=== PATIENT | female | born 1945 | race Caucasian/White ===

== ENCOUNTER 2020-01-01 11:30 | Emergency (ER) | payer MEDICARE, OTHER, SELFPAY ==
--- NOTE | 2020-01-01 11:34 | ED.GENADULT ---
HPI - General Adult General Chief complaint: Dental/Oral Stated complaint: broken tooth Time Seen by Provider: 01/01/20 11:48 Source: patient Mode of arrival: ambulatory Limitations: no limitations History of Present Illness HPI narrative: 74-year-old female patient presents to the [facility] with complaints of dental pain. Patient states that this morning her tooth on the right upper oral cavity broke off. Patient states that she feels like it is falling out. Patient states that she called her dental exchange and they instructed her to go the ER. Patient states that she did not want to sit in the ER all day today. Patient states she is starting to get a little bit of pain but denies taking anything for pain at this time. Patient wanting and requesting an emergency dentist office that is open on Friday. Related Data Home Medications Medication Instructions Recorded Confirmed alendronate 70 mg tablet 70 mg PO WEEKLY 09/30/19 coenzyme Q10 100 mg capsule 200 mg PO DAILY cap 09/30/19 simvastatin 20 mg tablet 20 mg PO QPM tablet 09/30/19 Allergies Allergy/AdvReac Type Severity Reaction Status Date / Time No Known Allergies Allergy Unverified 10/22/18 06:31 Review of Systems Review of Systems: Narrative: CONSTITUTIONAL: Denies fever, chills, or sweats. EYES: Denies visual changes, redness, or discharge. ENT: Denies rhinorrhea, congestion, sore throat, or otalgia. Positive broken tooth to right upper oral cavity CARDIOVASCULAR: Denies chest pain, palpitations, or edema. RESPIRATORY: Denies cough or dyspnea. GASTROINTESTINAL: Denies abdominal pain, nausea, vomiting, or diarrhea. GENITOURINARY: Denies dysuria or hematuria. SKIN: Denies rash or itching. MUSCULOSKELETAL: Denies back pain, joint pain, or myalgia. NEUROLOGIC: Denies headache, numbness, or weakness. PSYCHIATRIC: Denies anxiety or depression. [facility] Past Medical History Medical History Dyslipidemia Dysphonia Elevated lipids Essential (primary) hypertension Hx of echocardiogram negative stress echo 2002 Hypertension Osteoarthritis Osteopenia Family History Family History Sibling Diabetes mellitus Family history of hearing loss Mother Family history of hearing loss Social History Social History Smoking status: Never smoker Second hand tobacco smoke exposure: No Alcohol intake: current Substance use: never Substance use type: does not use Comments At the time of my signature I agree with nursing past medical history, surgical, social, and family history. There is no relevant family history pertinent to the presenting complaint. Exam Narrative: Exam Narrative: GENERAL: Well-appearing, well-nourished, and in no acute distress. HEAD: Normocephalic, atraumatic. EYES: PERRLA and EOMI. ENT: Nares clear, no rhinorrhea or epistaxis. Mucous membranes moist. Right upper bicuspid does appear to be broken at this time. There is slight erythema noted to the gum but no swelling noted. It is tender to the touch. NECK: Supple. No lymphadenopathy CHEST: Clear to auscultation. No respiratory distress. HEART: Regular rate and rhythm. No murmur heard. Normal peripheral pulses. ABDOMEN: Soft, nontender, nondistended, normal active bowel sounds. EXTREMITIES: Normal range of motion. No edema. SKIN: Warm, dry, no rash. NEURO: No focal deficits. Alert and oriented x3. Course Vital Signs Vital signs: Vital Signs Temperature 36.9 C 01/01/20 11:37 Pulse Rate 91 01/01/20 11:37 Respiratory Rate 16 01/01/20 11:37 Blood Pressure 143/105 H 01/01/20 11:37 Pulse Oximetry 99 01/01/20 11:37 Temperature 36.9 C 01/01/20 11:37 Pulse Rate 91 01/01/20 11:37 Respiratory Rate 16 01/01/20 11:37 Blood Pressure 143/105 H 01/01/20 11:37 Pulse Oximetry 99 01/01/20 11
[2020-01-01 11:37] VITALS: BP 143/105; PULSE 91; RESP 16; TEMP 36.9; O2SAT 99
== END 2020-01-01 12:01 | disposition home or self-care (01) ==
PROVIDERS: Emergency Provider Nurse Practitioner Family; PCP Family Medicine
DX: K03.81 Cracked tooth (principal); E78.5 Hyperlipidemia, unspecified; I10 Essential (primary) hypertension
CPT/HCPCS: 99213; G0463

== ENCOUNTER 2020-08-15 13:59 | Emergency (ER) | payer MEDICARE, OTHER, SELFPAY ==
[2020-08-15 14:03] VITALS: BP 188/94; PULSE 88; RESP 16; TEMP 36.8; O2SAT 100
--- NOTE | 2020-08-15 14:11 | ED.UPPEXIN ---
HPI - Extremity Injury (Upper) General Chief Complaint: Wound/Laceration Stated Complaint: INJURED FINGER Source: patient and RN notes reviewed History of Present Illness HPI narrative: The patient, previously mostly healthy with immunizations not UTD, presents with wound check of a skin avulsion. Patient states prior to arrival she sustained an avulsion/puncture to her left index finger at the nail insertion after a piece of glass broke. She would like TDap, the wound checked, as there is scant bleeding and small superficial avulsed tissue. No foreign body/glass sensation, decreased ROM, weakness; symptoms are minimal, better with pressure elevation Related Data Home Medications Medication Instructions Recorded Confirmed coenzyme Q10 100 mg capsule 200 mg PO DAILY cap 09/30/19 08/08/20 ascorbic acid 1,000 ea PO 08/08/20 08/08/20 zo-dxwloxxbjvcb-hwoexoeb powder effervescent pack calcium carb-vit S5-syljdghxr-jhip 1 tablet PO DAILY 08/08/20 08/08/20 333 mg-200 unit-133 mg-5 mg tablet glucosamine 750 tv-hlqrjsdilye-sda 1 tablet PO BID 08/08/20 08/08/20 no1 644 mg-C 30 mg-nicole 1 mg tablet latanoprost 0.005 % eye drops, 1 drp OPHTHALMIC (EYE) QPM 08/08/20 08/08/20 emulsion alendronate mg PO 08/15/20 losartan-hydrochlorothiazide tablet 08/15/20 simvastatin mg 08/15/20 Allergies Allergy/AdvReac Type Severity Reaction Status Date / Time No Known Allergies Allergy Verified 08/15/20 14:11 Review of Systems Review of Systems: Narrative: General/Constitutional: No weight loss,fever Eyes: N0: Redness,discharge Ears/Nose/Throat: No: Epistaxis,ear discharge Respiratory: Denies: Hemoptysis Gastrointestinal: No Vomiting, Bleeding-rectal Skin: No Lumps, eruption Neurologic: No Focal Weakness,Sz Hematologic: Denies: Petechiae/Purpura Psychiatric: No: Suicida ideationl All Other Systems: Reviewed and Negative [facility] Past Medical History Medical History (Updated 08/19/20 @ 17:29 by Fermin Mosqueda MD) Dyslipidemia Dysphonia Essential (primary) hypertension Hx of echocardiogram negative stress echo 2001 Hypertension Osteoarthritis Osteopenia Surgical History Surgical History (Updated 08/08/20 @ 12:05 by Magdalena Ansari MD) History of hip replacement (~2018) right - 07/2018 left 04/2018 Family History Family History Sibling Diabetes mellitus Family history of hearing loss Mother Family history of hearing loss Social History Social History Smoking status: Never smoker Second hand tobacco smoke exposure: No Alcohol intake: current Substance use: never Substance use type: does not use Comments At time of signature, agree with nursing past medical, surgical, social and family history. There is no relevant family history pertinent to the presenting complaint Exam Narrative: Exam Narrative: General Appearance: Well appearing, Conjunctiva nl Ears: External ear normal, Auditory canal normal Nose: Normal nose, Nares clear Mouth/Throat: Normal appearing, Normal lips Supple, Respiratory: Airway patent, No respiratory distress Skin: Warm, Dry; small 3 to 5 mm puncture/avulsion of the L. index cuticle Neurological: A&O x3, Normal affect Course Vital Signs Vital signs: Vital Signs Temperature 98.3 F 08/15/20 14:03 Pulse Rate 88 08/15/20 14:03 Respiratory Rate 16 08/15/20 14:03 Blood Pressure 188/94 H 08/15/20 14:03 Pulse Oximetry 100 08/15/20 14:03 Temperature 98.3 F 08/15/20 14:03 Pulse Rate 88 08/15/20 14:03 Respiratory Rate 16 08/15/20 14:03 Blood Pressure 188/94 H 08/15/20 14:03 Pulse Oximetry 100 08/15/20 14:03 Discharge Plan Discharge Clinical Impression: Encounter for post-traumatic wound check, Hx of avulsion Patient Disposition: Home, Self-Care Condition: Stable Instructions: Skin Avulsion (ED) Pre
[2020-08-15] MEDS: TETANUS,DIPHTHERIA,AC PERTUSSIS ADULT (0.5 ML) BOOSTRIX IM (14:23)
== END 2020-08-15 14:45 | disposition home or self-care (01) ==
PROVIDERS: Emergency Provider Emergency Medicine; PCP Family Medicine
DX: S61.201A Unspecified open wound of left index finger without damage to nail, initial encounter (principal); W25.XXXA Contact with sharp glass, initial encounter; Z23 Encounter for immunization; E78.5 Hyperlipidemia, unspecified; I10 Essential (primary) hypertension; M19.90 Unspecified osteoarthritis, unspecified site; M85.80 Other specified disorders of bone density and structure, unspecified site; Z96.643 Presence of artificial hip joint, bilateral
CPT/HCPCS: 90471; 90715; 99212; G0463

== ENCOUNTER 2021-04-11 12:56 | Outpatient (CLI) | payer MEDICARE, OTHER, SELFPAY ==
--- NOTE | ~2021-04-11 | MM_ITS ---
EXAMINATION: MM screening [facility] BI w stephanie HISTORY: Screening mammogram TECHNIQUE: Craniocaudal and mediolateral oblique 3-D tomosynthesis images were obtained and synthetic 2-D images were generated. CAD analysis was submitted and interpreted. COMPARISON: 04/14/2019, 05/07/2016, 02/24/2015 BREAST PARENCHYMAL COMPOSITION: There are scattered areas of fibroglandular density. FINDINGS: There is no evidence of suspicious mass, calcification, or architectural distortion to sugg est malignancy in either breast. There has been no suspicious interval change. IMPRESSION: 1. No mammographic evidence of malignancy. 2. Recommend routine screening mammography in one year. BI-RADS Category 1: Negative Reviewed, dictated and finalized at location A.
== END 2021-04-11 12:57 | disposition home or self-care (01) ==
LOC: ANHIMG 13:00
PROVIDERS: PCP Family Medicine; Visit Provider Family Medicine
DX: Z12.31 Encounter for screening mammogram for malignant neoplasm of breast (principal)
CPT/HCPCS: 77063; 77067

== ENCOUNTER 2021-09-06 04:27 | Emergency (ER) | payer MEDICARE, OTHER, SELFPAY ==
--- NOTE | ~2021-09-06 | XR_ITS ---
EXAMINATION: XR chest 1V portable DATE: 09/06/2021 05:14 INDICATION: Dizziness and vomiting. TECHNIQUE: A single frontal view of the chest was obtained. COMPARISON: Chest 2 views 10/22/2018 FINDINGS: Calcified pulmonary nodules and calcified hilar and mediastinal lymph nodes are consistent with old granulomatous disease. No pleural effusion or pneumothorax. The heart size is normal. IMPRESSION: 1. No acute cardiopulmonary disease. Reviewed, dictated and finalized at location A. [employer]
--- NOTE | ~2021-09-06 | CT_ITS ---
EXAMINATION: CT brain wo con DATE: 09/06/2021 05:21 INDICATION: Vertigo. TECHNIQUE: Computed tomography (CT) of the head was performed without intravenous contrast. The mA wa s adjusted according to patient size. Iterative reconstruction technique was employed. The dose-lengt h product was 605.33 mGy-cm. COMPARISON: None FINDINGS: There is no intracranial hemorrhage, acute infarction, or abnormal intracranial mass lesion . The ventricles are normal in size. There is mucosal thickening in the paranasal sinuses. The mastoi d air cells are normal. IMPRESSION: 1. Normal brain. Reviewed, dictated and finalized at location A. D TECHNICAL ASSISTANT IMPRESSION: 1. Normal brain.
--- NOTE | 2021-09-06 04:34 | ECG_ITS ---
Measurements Intervals [place] Rate: 80 P: 42 IA: 168 QRS: 3 QRSD: 90 T: 32 QT: 415 QTc: 480 Interpretive Statements SINUS RHYTHM POSSIBLE LEFT ATRIAL ENLARGEMENT LOW QRS VOLTAGE IN PRECORDIAL LEADS CANNOT RULE OUT SEPTAL INFARCT, AGE INDETERMINATE ABNORMAL ECG Electronically Signed On 09-06-2021 5:55:23 DYNAMOMETER TUNER by Geoff Pena D.O.
[2021-09-06 04:40] VITALS: BP 206/90; PULSE 77; RESP 18; TEMP 36.9; O2SAT 99
[2021-09-06 05:05] LABS: Basophils Percent Auto 0.2 % (0.2-1.2); Eosinophils Absolute Auto 0.1 K/mm3 (0-0.3); Eosinophils Percent Auto 1.2 % (0-4.4); Hematocrit 39.5 % (37.0-47.0); Hemoglobin 13.8 g/dL (12.0-15.0); Immature Granulocyte Absolute 0.02 K/mm3 (0.00-0.031); Immature Granulocyte Percent A 0.4 % (0-0.5); Lymphocytes Absolute Auto 1.56 K/mm3 (0.9-3.2); Lymphocytes Percent Auto 31.6 % (18.3-44.2); Mean Corpuscular HGB Conc 34.9 g/dl (32-36); Mean Corpuscular Hemoglobin 32.5 pg (26-34); Mean Corpuscular Volume 93.2 fl (80-100); Mean Platelet Volume 9.7 fl (7.4-10.4); Monocytes Absolute Auto 0.5 K/mm3 (0.1-0.6); Monocytes Percent Auto 9.5 % (2.6-8.5); Neutrophils Absolute Auto 2.8 K/mm3 (1.3-6.7); Neutrophils Percent Auto 57.1 % (45.5-73.1); Platelet Count Result 184 k/mm3 (150-375); Red Blood Count 4.24 M/mm3 (4.2-5.4); Red Cell Distribution Width 12.2 % (11.5-14.5); White Blood Count 4.9 K/mm3 (4.5-10.0)
[2021-09-06 05:22] LABS: Anion Gap 7 mmol/L (8-16); Blood Urea Nitrogen 19 mg/dL (7-17); Calcium 8.8 mg/dL (8.4-10.2); Carbon Dioxide 26 mmol/L (22-30); Chloride 107 mmol/L (98-107); Estimated CRCL calculation 47 ml/min; Estimated Glomerular Filt Rate > 60; Glucose 136 mg/dL (65-110); Potassium 3.2 mmol/L (3.4-5.0); Sodium 140 mmol/L (137-145)
--- NOTE | 2021-09-06 05:22 | ED.GENADULT ---
HPI - General Adult General Chief complaint: Dizziness Stated complaint: dizziness, N/V Time Seen by Provider: 09/06/21 04:41 History of Present Illness HPI narrative: Patient 75-year-old female presents the emergency department with chief complaint of dizziness patient reports this evening she started having a lightheaded feeling and feeling a rotational symptom. Patient states that she has had nausea without vomiting and reports that she needs to have a bowel movement now. Patient denies blood in her stool denies abdominal pain denies chest pain denies shortness of breath. Patient reports that when she was walking she felt as though she was a little unsteady whenever she was walked. Related Data Home Medications Medication Instructions Recorded Confirmed coenzyme Q10 100 mg capsule 200 mg PO DAILY cap 09/30/19 08/20/21 ascorbic acid 1,000 ea PO 08/08/20 08/20/21 al-ktqyrpztewcn-nokcghxf powder effervescent pack calcium carb-vit K1-ldxxfilzu-btsc 1 tablet PO DAILY 08/08/20 08/20/21 333 mg-200 unit-133 mg-5 mg tablet latanoprost 0.005 % eye drops, 1 drp OPHTHALMIC (EYE) QPM 08/08/20 08/20/21 emulsion glucosamine 750 qc-otndnpwtlhd-sxz 1 tablet PO DAILY tablet 08/20/21 08/20/21 no1 644 mg-C 30 mg-nicole 1 mg tablet Allergies Allergy/AdvReac Type Severity Reaction Status Date / Time No Known Allergies Allergy Verified 08/20/21 10:35 Review of Systems Review of Systems: A 10 system review of systems was completed on the patient and is negative except for what is stated in the HPI. Nursing and ancillary documentation was reviewed. [facility] Past Medical History Medical History Dyslipidemia Dysphonia Essential (primary) hypertension Hx of echocardiogram negative stress echo 2001 Osteoarthritis Osteopenia Surgical History Surgical History History of ear, nose, and throat (ENT) surgery 1980s - on vocal cords for dysphonia History of hip replacement (~2017) right - 07/2018 left 04/2018 Family History Family History Sibling Diabetes mellitus Family history of hearing loss Mother Family history of hearing loss Social History Social History Smoking status: Never smoker Second hand tobacco smoke exposure: No Alcohol intake: current Substance use: never Substance use type: does not use Gender identity (if verbalized by the patient): Female Sexual Orientation (if Verbalized by the Patient): Straight or Heterosexual Exam Narrative: GENERAL: Well-appearing, well-nourished, and in no acute distress. HEAD: Normocephalic, atraumatic. EYES: PERRLA and EOMI. ENT: Nares clear, no rhinorrhea or epistaxis. Mucous membranes moist. NECK: Supple. CHEST: Clear to auscultation. No respiratory distress. HEART: Regular rate and rhythm. No murmur heard. Normal peripheral pulses. ABDOMEN: Soft, nontender, nondistended, normal active bowel sounds. EXTREMITIES: Normal range of motion. No edema. SKIN: Warm, dry, no rash. NEURO: No focal deficits. Alert and oriented x3. PSYCH: Normal mood and affect. Course Vital Signs Vital signs: Vital Signs Temperature 36.9 C 09/06/21 04:40 Pulse Rate 77 09/06/21 04:40 Respiratory Rate 18 09/06/21 04:40 Blood Pressure 206/90 H 09/06/21 04:40 Pulse Oximetry 99 09/06/21 04:40 Temperature 36.9 C 09/06/21 04:40 Pulse Rate 79 09/06/21 06:06 Respiratory Rate 14 09/06/21 06:06 Blood Pressure 164/69 H 09/06/21 06:06 Pulse Oximetry 99 09/06/21 06:06 Medical Decision Making Vital Signs Vital Signs: Vital Signs Temperature 36.9 C 09/06/21 04:40 Pulse Rate 77 09/06/21 04:40 Respiratory Rate 18 09/06/21 04:40 Blood Pressure 206/90 H 09/06/21 04:40 Pulse Oximetry
[2021-09-06] MEDS: SODIUM CHLORIDE 0.9% IV 1,000 ML 999 ML IV CONT (05:23)
[2021-09-06] MEDS: METOCLOPRAMIDE HCL INJ 10 MG/2 ML VIAL IV PUSH (05:24)
[2021-09-06 05:50] LABS: Lactic Acid Reflex 1.8 mmol/L (0.7-2.1)
[2021-09-06 05:52] LABS: Alanine Aminotransferase 20 U/L (4-35); Albumin Level 4.3 g/dL (3.5-5.1); Alkaline Phosphatase 82 U/L (38-126); Aspartate Amino Transferase 29 U/L (14-36); Bilirubin,Total 0.3 mg/dL (0.2-1.3); Magnesium 1.9 mg/dL (1.6-2.3)
[2021-09-06 06:03] LABS: Troponin I < 0.012 ng/mL (0.000-0.034)
[2021-09-06] MEDS: POTASSIUM CHLORIDE 20 MEQ PACKET (FOR LIQUID) 40 MEQ PO (06:04)
[2021-09-06] MEDS: MECLIZINE HCL 25 MG TABLET PO (06:04)
[2021-09-06 06:06] VITALS: BP 164/69; PULSE 79; RESP 14; O2SAT 99
[2021-09-06 06:14] LABS: INR 0.9; Partial Thromboplastin Time 22.9 SECONDS (22.3-36.8); Prothrombin Time 11.6 Seconds (11.1-14.7)
[2021-09-06 06:42] LABS: Add Urine Microscopic? YES; Appearance Urine Cloudy (Clear); Bilirubin Urine Negative (Negative); Color Urine Yellow (Yellow); Glucose Urine UA Negative (Negative); Ketones Urine Negative (Negative); Leukocyte Esterase Ur 3+ LEU/UL (Negative); Nitrate Urine Negative (Negative); Protein Urine 1+ mg/dL (Negative); Specific Grav Ur 1.015 (1.001-1.035); Squamous Epithelial Cell Urine Moderate /hpf (Few); Urobilinogen Urine Negative mg/dL (<2.0); WBC Urine 31-50 /hpf
[2021-09-06 06:46] VITALS: BP 159/65; PULSE 78; RESP 16; O2SAT 100
[2021-09-06 06:58] LABS: Blood Urine Negative (Negative)
== END 2021-09-06 06:50 | disposition home or self-care (01) ==
PROVIDERS: Emergency Provider Emergency Medicine; PCP Family Medicine
DX: H81.10 Benign paroxysmal vertigo, unspecified ear (principal); R11.2 Nausea with vomiting, unspecified; E78.5 Hyperlipidemia, unspecified; I10 Essential (primary) hypertension; Z79.899 Other long term (current) drug therapy
CPT/HCPCS: 36415; 70450; 71045; 80048; 80076; 81001; 83605; 83735; 84484; 85025; 85610; 85730; 87086; 93005; 96361; 96374; 99284; A9270; J2765; J7030

== ENCOUNTER 2022-06-21 12:38 | Outpatient (CLI) | payer MEDICARE, OTHER, SELFPAY ==
--- NOTE | ~2022-06-21 | MM_ITS ---
EXAMINATION: MM screening [facility] BI w stephanie HISTORY: Screening TECHNIQUE: Craniocaudal and mediolateral oblique 3-D tomosynthesis images were obtained and synthetic 2-D images were generated. CAD analysis was submitted and interpreted. COMPARISON: Comparison to multiple prior studies sequentially, with oldest reviewed study dated 10/2014. BREAST PARENCHYMAL COMPOSITION: Breast composed of scattered areas of fibroglandular density FINDINGS: There is no evidence of suspicious mass, calcification, or architectural distortion to sugg est malignancy in either breast. There has been no suspicious interval change. IMPRESSION: 1. No mammographic evidence of malignancy. 2. Recommend routine screening mammography in one year. BI-RADS Category 1: Negative Reviewed, dictated and finalized at location A.
== END 2022-06-21 12:39 | disposition home or self-care (01) ==
PROVIDERS: PCP Family Medicine; Visit Provider Nurse Practitioner
DX: Z12.31 Encounter for screening mammogram for malignant neoplasm of breast (principal)
CPT/HCPCS: 77063; 77067

== ENCOUNTER → 2022-07-26 16:36 | Outpatient (CLI) | payer MEDICARE, OTHER, SELFPAY ==
--- NOTE | ~2022-07-26 | XR_ITS ---
EXAMINATION: XR lumbar spine 2-3V DATE: 07/26/2022 16:56 INDICATION: Low back pain. Bilateral leg pain. TECHNIQUE: 3 views of lumbar spine were obtained. COMPARISON: Lumbar spine radiographs 02/07/2014 FINDINGS: There is 8 degrees levocurvature of lumbar spine. There is 3 mm anterolisthesis of L4 on L5 . Vertebral body heights are normal. There is mildly decreased disc height at L3-L4 and L4-L5. There are endplate osteophytes at most levels. There is multilevel facet joint osteoarthritis, severe in lo wer lumbar spine. There are bilateral hip arthroplasties. IMPRESSION: 1. Mild lumbar spondylosis. Reviewed, dictated and finalized at location A. IMPRESSION: 1. Mild lumbar spondylosis.
--- NOTE | ~2022-07-26 | XR_ITS ---
EXAMINATION: XR sacrum coccyx min 2V DATE: 07/26/2022 16:56 INDICATION: Low back pain, unspecified. TECHNIQUE: 3 views of the sacrum and coccyx were obtained. COMPARISON: None. FINDINGS: There is 3 mm anterolisthesis of L4 on L5. There is mild lumbar spondylosis. No fracture. T here is mild osteoarthritis of the sacroiliac joints. There are bilateral total hip arthroplasties. IMPRESSION: 1. Mild osteoarthritis of the sacroiliac joints. 2. Mild lumbar spondylosis. Reviewed, dictated and finalized at location A.
== END ==
PROVIDERS: PCP Nurse Practitioner Family; Visit Provider Nurse Practitioner Family
DX: M79.604 Pain in right leg (principal); M79.605 Pain in left leg; M47.896 Other spondylosis, lumbar region; M53.3 Sacrococcygeal disorders, not elsewhere classified
CPT/HCPCS: 72100; 72220

== ENCOUNTER 2022-08-19 11:00 | Emergency (ER) | payer MEDICARE, OTHER, SELFPAY ==
[2022-08-19 11:09] VITALS: BP 154/68; PULSE 80; RESP 16; TEMP 37; O2SAT 99
[2022-08-19 12:07] LABS: Basophils Percent Auto 0.4 % (0.2-1.2); Eosinophils Absolute Auto 0.1 K/mm3 (0-0.3); Eosinophils Percent Auto 1.5 % (0-4.4); Hematocrit 40.5 % (37.0-47.0); Immature Granulocyte Absolute 0.01 K/mm3 (0.00-0.031); Immature Granulocyte Percent A 0.2 % (0-0.5); Lymphocytes Absolute Auto 1.73 K/mm3 (0.9-3.2); Lymphocytes Percent Auto 37.4 % (18.3-44.2); Mean Corpuscular HGB Conc 34.6 g/dl (32-36); Mean Corpuscular Hemoglobin 33.3 pg (26-34); Mean Corpuscular Volume 96.2 fl (80-100); Mean Platelet Volume 9.7 fl (7.4-10.4); Monocytes Absolute Auto 0.4 K/mm3 (0.1-0.6); Monocytes Percent Auto 8.4 % (2.6-8.5); Neutrophils Absolute Auto 2.4 K/mm3 (1.3-6.7); Neutrophils Percent Auto 52.1 % (45.5-73.1); Platelet Count Result 222 k/mm3 (150-375); Red Blood Count 4.21 M/mm3 (4.2-5.4); Red Cell Distribution Width 12.4 % (11.5-14.5); White Blood Count 4.6 K/mm3 (4.5-10.0)
[2022-08-19 12:21] LABS: Alanine Aminotransferase 20 U/L (6-35); Albumin Level 4.2 g/dL (3.5-5.1); Alkaline Phosphatase 75 U/L (38-126); Anion Gap 10 mmol/L (8-16); Aspartate Amino Transferase 29 U/L (14-36); Bilirubin,Total 0.4 mg/dL (0.2-1.3); Blood Urea Nitrogen 18 mg/dL (7-17); Calcium 8.7 mg/dL (8.4-10.2); Carbon Dioxide 26 mmol/L (22-30); Chloride 105 mmol/L (98-107); Estimated CRCL calculation 47 ml/min; Estimated Glomerular Filt Rate > 60; Glucose 100 mg/dL (65-110); Lipase 141 U/L (23-300); Potassium 3.5 mmol/L (3.4-5.0); Sodium 141 mmol/L (137-145)
--- NOTE | 2022-08-19 19:54 | ED.GENADULT ---
HPI - General Adult General Chief complaint: Abdominal Pain Stated complaint: constipation Time Seen by Provider: 08/19/22 11:13 History of Present Illness HPI narrative: 76-year-old female presenting with constipation for the last 2 days, she has had issues with constipation in the past for all her life, her last colonoscopy was 8 years ago and was normal at the time. Per daughter at bedside, she had similar issues 2 weeks ago and when she was very constipated she overall was feeling unwell and weak and she feels somewhat similar today. No abdominal pain, nausea or vomiting, though she does have hemorrhoids that bother her. Related Data Home Medications Medication Instructions Recorded Confirmed coenzyme Q10 100 mg capsule (Co 200 mg PO DAILY 09/30/19 07/26/22 Q-10) ascorbic acid 1,000 ea PO 08/08/20 07/26/22 qf-ucuqatdyrbzx-wskpbbfh powder effervescent pack (Emergen-C) calcium carb-vit H0-asnxxcqma-ucwf 1 tablet PO DAILY 08/08/20 07/26/22 333 mg-200 unit-133 mg-5 mg tablet glucosamine 750 jc-wvksbevjmdk-tor 1 tablet PO DAILY 08/20/21 07/26/22 no1 644 mg-C 30 mg-nicole 1 mg tablet (Osteo Bi-Flex Triple Strength) Allergies Allergy/AdvReac Type Severity Reaction Status Date / Time No Known Allergies Allergy Verified 08/19/22 11:12 Review of Systems Review of Systems: CONST: Fatigue HEENT: No sore throat C/V: No chest pain RESP: No cough GI: has a patient without abdominal pain : No dysuria. M/S: Chronic back pain SKIN: No rash. NEURO: [No headache or focal numbness or weakness] PSYCH: [No depression] [facility] Past Medical History Medical History Dyslipidemia Dysphonia Essential (primary) hypertension Hx of echocardiogram negative stress echo 2001 Osteoarthritis Osteopenia Surgical History Surgical History History of ear, nose, and throat (ENT) surgery - on vocal cords for dysphonia History of hip replacement (~2017) right - 07/2018 left 04/2018 Family History Family History Sibling Diabetes mellitus Family history of hearing loss Mother Family history of hearing loss Social History Social History Smoking status: Never smoker Second hand tobacco smoke exposure: No Alcohol intake: current Substance use: never Substance use type: does not use Gender identity (if verbalized by the patient): Female Sexual Orientation (if Verbalized by the Patient): Straight or Heterosexual Exam Narrative: EXAMINATION OF ORGAN SYSTEMS/BODY AREAS: Constitutional: Vital signs per nursing GENERAL:[No acute distress, non-toxic appearing.] HEAD: Normal with no signs of head trauma. EYES: EOMI, conjunctiva normal ENT: Hearing grossly intact LUNGS: Nonlabored breathing. HEART: [Regular rate and rhythm] ABD: [Soft], [nontender to palpation], no distention EXT: Normal range of motion SKIN: [No rashes or lesions.] NEURO: [Alert and oriented x 3. No gross focal sensory or strength deficits.] PSYCH: Normal affect Course Vital Signs Vital signs: Vital Signs Temperature 98.6 F 08/19/22 11:09 Pulse Rate 80 08/19/22 11:09 Respiratory Rate 16 08/19/22 11:09 Blood Pressure 154/68 H 08/19/22 11:09 Pulse Oximetry 99 08/19/22 11:09 Temperature 98.6 F 08/19/22 11:09 Pulse Rate 80 08/19/22 11:09 Respiratory Rate 16 08/19/22 11:09 Blood Pressure 154/68 H 08/19/22 11:09 Pulse Oximetry 99 08/19/22 11:09 Medical Decision Making MDM Narrative Medical decision making narrative: This 76-year-old female patient presents with constipation of 2 days, without any abdominal pain, nausea or vomiting. Vitals stable here, on exam has soft, nontender abdomen. I have low concern for any emergent diagnosis such as SBO or bowel ischemia without any tend
== END 2022-08-19 13:00 | disposition home or self-care (01) ==
LOC: ANHED 12:01
PROVIDERS: Emergency Provider Emergency Medicine; PCP Nurse Practitioner Family
DX: K59.00 Constipation, unspecified (principal); K64.9 Unspecified hemorrhoids; E78.5 Hyperlipidemia, unspecified; I10 Essential (primary) hypertension; M19.90 Unspecified osteoarthritis, unspecified site; M85.80 Other specified disorders of bone density and structure, unspecified site; Z96.643 Presence of artificial hip joint, bilateral
CPT/HCPCS: 36415; 80053; 83690; 85025; 99284

== ENCOUNTER 2022-10-04 01:29 | Emergency (ER) | payer MEDICARE, OTHER, SELFPAY ==
[2022-10-04] VITALS (9 sets, daily range): BP systolic 160–189; BP diastolic 70–86; PULSE 75–93; RESP 12–21; TEMP 36.9; O2SAT 99–100
--- NOTE | 2022-10-04 01:30 | ECG_ITS ---
Measurements Intervals [place] Rate: 78 P: 39 [place]: 162 QRS: -5 QRSD: 82 T: 36 QT: 385 QTc: 440 Interpretive Statements SINUS RHYTHM POSSIBLE LEFT ATRIAL ENLARGEMENT [-0.1mV P WAVE IN V1/V2] LOW QRS VOLTAGE IN PRECORDIAL LEADS [QRS DEFLECTION < 1.0 mV IN CHEST LEADS] POSSIBLE ANTERIOR MYOCARDIAL INFARCTION , OLD COMPARED TO ECG 09/06/2021 04:39:08 NO SIGNIFICANT CHANGES Electronically Signed On 10-04-2022 7:47:33 SETTER UP by Axel Rudd M.D.
--- NOTE | 2022-10-04 02:31 | ED.GENADULT ---
HPI - General Adult General Chief complaint: Unspecified Stated complaint: hypertension Time Seen by Provider: 10/04/22 01:59 History of Present Illness HPI narrative: This is a 76-year-old female presenting ED with chief complaint of hypertension. Patient says she woke up at 2:00 a.m.. She decided to check her blood pressure is elevated at 170s/100s. the patient then became anxious about her blood pressure and checked it again and continued to rise. She then came to emergency department for evaluation. The patient is not complaining of chest pain, difficulty breathing, headache, neurologic deficits. She feels well overall though she is anxious about her health. Related Data Home Medications Medication Instructions Recorded Confirmed coenzyme Q10 100 mg capsule (Co 200 mg PO DAILY 09/30/19 08/26/22 Q-10) ascorbic acid 1,000 ea PO 08/08/20 08/26/22 fs-cxxgswkfbetf-wglmxsjv powder effervescent pack (Emergen-C) calcium carb-vit F2-ccbfdesvs-cato 1 tablet PO DAILY 08/08/20 08/26/22 333 mg-200 unit-133 mg-5 mg tablet glucosamine 750 ys-cfpuqgvtamm-gqo 1 tablet PO DAILY 08/20/21 08/26/22 no1 644 mg-C 30 mg-nicole 1 mg tablet (Osteo Bi-Flex Triple Strength) acetaminophen 325 mg tablet 325 mg PO Q6H PRN 08/26/22 08/26/22 (Tylenol) naproxen sodium 220 mg tablet 220 mg PO BID PRN 08/26/22 08/26/22 (Aleve) Allergies Allergy/AdvReac Type Severity Reaction Status Date / Time No Known Allergies Allergy Verified 08/26/22 08:55 Review of Systems Review of Systems: CONSTITUTIONAL: Denies night sweats. EYES: No eye pain ENT: Denies rhinorrhea CARDIOVASCULAR: Denies palpitations RESPIRATORY: Denies hemoptysis GASTROINTESTINAL: Denies hematemesis GENITOURINARY: Denies hematuria. SKIN: Denies rash MUSCULOSKELETAL: Denies myalgia. NEUROLOGIC: Denies weakness. PSYCHIATRIC: Denies delusions PMFSH Past Medical History Medical History Dyslipidemia Dysphonia Essential (primary) hypertension Hx of echocardiogram negative stress echo 2002 Osteoarthritis Osteopenia Surgical History Surgical History History of ear, nose, and throat (ENT) surgery 1980s - on vocal cords for dysphonia History of hip replacement (~2017) right - 07/2018 left 04/2018 Family History Family History Sibling Diabetes mellitus Family history of hearing loss Mother Family history of hearing loss Social History Social History Smoking status: Never smoker Second hand tobacco smoke exposure: No Alcohol intake: never Substance use: never Substance use type: does not use Lack of Transportation: No Lack of Food: Never True Current Housing: I Have Housing Concerned About Future Housing: No Difficulty Paying Gas/Electric Bills: No Difficulty Paying for Meds: No Currently Unemployed: No Education: High School Diploma/GED Additional living arrangements comments: Pts 08/25/21 Gender identity (if verbalized by the patient): Female Sexual Orientation (if Verbalized by the Patient): Straight or Heterosexual Agree to blood products: Yes Exam Narrative: APPEARANCE: No apparent distress. Head: atraumatic. EYES: EOMI, NOSE: Atraumatic NECK: Trachea midline RESPIRATORY: No increased rate of breathing Clear to auscultation bilaterally CARDIOVASCULAR: RRR, no peripheral edema ABDOMINAL: Non-distended MUSCULOSKELETAl: No obvious deformities NEURO: Alert. Cranial nerves 2-12 grossly intact. Sensation light touch, motor function cerebellar function intact for 4 extremities. Gait exam was normal. SKIN:: Warm, dry. Normal color PSYCHIATRIC: anxious Course Vital Signs Vital signs: Vital Signs Temperature 98.5 F 10/04/22 01:30 Pulse Rate 87 1
== END 2022-10-04 03:08 | disposition home or self-care (01) ==
PROVIDERS: Emergency Provider Emergency Medicine; PCP Nurse Practitioner Family
DX: I10 Essential (primary) hypertension (principal); F41.9 Anxiety disorder, unspecified; E78.5 Hyperlipidemia, unspecified; M19.90 Unspecified osteoarthritis, unspecified site; M85.80 Other specified disorders of bone density and structure, unspecified site; Z96.643 Presence of artificial hip joint, bilateral
CPT/HCPCS: 93005; 99283

== ENCOUNTER 2022-11-19 00:15 | Day surgery (SDC) | payer MEDICARE, OTHER, SELFPAY ==
[2022-10-18 11:19] VITALS: BMI 25.7
--- NOTE | 2022-11-19 06:59 | WPDANESEPPF ---
Anes - Initial Pre Proc Eval Procedure: Operation Date: 11/19/22 08:30 Proposed Procedures p Colonoscopy - Víctor Garcia MD Date/Time: 11/19/22 06:59 Surgeon: Víctor Garcia MD Pre Op Diagnosis: positive cologuard Patient Data Age: 77 Gender: F Height: 1.59 m Weight: 65 kg Allergies Allergy/AdvReac Type Severity Reaction Status Date / Time No Known Allergies Allergy Verified 11/19/22 07:29 Home Medications Medication Instructions Recorded Confirmed Type coenzyme Q10 100 mg capsule (Co 200 mg PO DAILY 09/30/19 11/19/22 History Q-10) ascorbic acid 1,000 1 ea PO DAILY 08/08/20 11/19/22 History oq-jjfeypuyoyjl-urpksizj powder effervescent pack (Emergen-C) calcium carb-vit H4-ruuprgnwq-lkig 1 tablet PO DAILY 08/08/20 11/19/22 History 333 mg-200 unit-133 mg-5 mg tablet glucosamine 750 lb-ehmxfygmyng-mwf 1 tablet PO DAILY 08/20/21 11/19/22 History no1 644 mg-C 30 mg-nicole 1 mg tablet (Osteo Bi-Flex Triple Strength) hydrocortisone 2.5 % topical cream 1 applic RECTAL DAILY PRN 08/19/22 11/19/22 Rx with perineal applicator hemorrhoids #30 grams (Anusol-HC) acetaminophen 325 mg tablet 325 mg PO Q6H PRN Pain 08/26/22 11/19/22 History (Tylenol) sodium,potassium,mag sulfates 17.5 See Rx Instructions PO .COMPLEX 09/27/22 11/19/22 Rx gram-3.13 gram-1.6 gram oral soln #354 mL (Suprep Bowel Prep Kit) losartan 100 1 tablet PO DAILY #90 tabs 10/09/22 11/19/22 Rx mg-hydrochlorothiazide 12.5 mg tablet Cbd Cream 1 applic DAILY PRN Pain 10/18/22 11/19/22 History cholecalciferol (vitamin D3) 50 50 mcg PO DAILY 10/18/22 11/19/22 History mcg (2,000 unit) capsule (Vitamin D3) lactobacillus combination no.8 3 1 cell PO DAILY 10/18/22 11/19/22 History billion cell capsule polyethylene glycol 3350 17 17 g PO DAILY PRN Constipation 10/18/22 11/19/22 History gram/dose oral powder (Miralax) simvastatin 20 mg tablet 20 mg PO QHS #90 tabs 11/18/22 11/19/22 Rx Patient hx anesthesia problems: none Family hx anesthesia problems: none Results Review: All pre-operative results and documents have been reviewed as part of the pre-operative evaluation. [facility] Past Medical History Medical History (Updated 11/19/22 @ 07:00 by Marin Bhakta DO) Chronic low back pain Dyslipidemia Dysphonia Essential (primary) hypertension Glaucoma Hx of echocardiogram negative stress echo 2001 Osteoarthritis Osteopenia Paralysis of left vocal cord Surgical History Surgical History History of ear, nose, and throat (ENT) surgery - on vocal cords for dysphonia History of hip replacement (~2017) right - 07/2018 left 04/2018 Family History Family History Sibling Diabetes mellitus Family history of hearing loss Mother Family history of hearing loss Social History Social History Smoking status: Never smoker Second hand tobacco smoke exposure: No Alcohol intake: never Substance use: never Substance use type: does not use Lack of Transportation: No Lack of Food: Never True Current Housing: I Have Housing Concerned About Future Housing: No Difficulty Paying Gas/Electric Bills: No Difficulty Paying for Meds: No Currently Unemployed: No Education: High School Diploma/GED Living arrangements: with family Additional living arrangements comments: Pts 08/25/21 Occupation/Education: retired Gender identity (if verbalized by the patient): Female Sexual Orientation (if Verbalized by the Patient): Straight or Heterosexual Agree to blood products: Yes Anes - Eval Final PreProcedure Day of Procedure 11/19/22 06:59 Patient weight: overweight Heart: regular rate and rhythm Lungs: clear to auscultation Airway: Mallampati scale class I
[2022-11-19 07:32] VITALS: BP 155/75; PULSE 85; RESP 16; TEMP 36.7; O2SAT 100
[2022-11-19] MEDS: LACTATED RINGERS 1,000 ML 150 ML IV CONT (07:43)
--- NOTE | 2022-11-19 08:01 | PM.HPGS ---
History of Present Illness History of Present Illness Consent: Risks, benefits, and alternatives have been discussed and questions answered. Patient agrees to proceed with procedure. Chief complaint: positive cologuard Narrative: Desire Montilla is a 77 year old female Presents for screening colonoscopy. Patient's current weight appetite and bowel movements are normal. Patient denies abdominal pain. She has had no bleeding. Recent stool Cologuard test was found to be positive . Patient presents today for screening exam. Review of Systems Review of Systems: Review of systems noncontributory. [facility] Past Medical History Medical History (Updated 11/19/22 @ 07:00 by Marin Bhakta, DO) Chronic low back pain Dyslipidemia Dysphonia Essential (primary) hypertension Glaucoma Hx of echocardiogram negative stress echo 2001 Osteoarthritis Osteopenia Paralysis of left vocal cord Surgical History Surgical History History of ear, nose, and throat (ENT) surgery 1980s - on vocal cords for dysphonia History of hip replacement (~2017) right - 07/2018 left 04/2018 Family History Family History Sibling Diabetes mellitus Family history of hearing loss Mother Family history of hearing loss Social History Social History Smoking status: Never smoker Second hand tobacco smoke exposure: No Alcohol intake: never Substance use: never Substance use type: does not use Lack of Transportation: No Lack of Food: Never True Current Housing: I Have Housing Concerned About Future Housing: No Difficulty Paying Gas/Electric Bills: No Difficulty Paying for Meds: No Currently Unemployed: No Education: High School Diploma/GED Living arrangements: with family Additional living arrangements comments: Pts 08/25/21 Occupation/Education: retired Gender identity (if verbalized by the patient): Female Sexual Orientation (if Verbalized by the Patient): Straight or Heterosexual Agree to blood products: Yes Meds Home Medications and Allergies Home Medications Medication Instructions Recorded Confirmed Type coenzyme Q10 100 mg capsule (Co 200 mg PO DAILY 09/30/19 11/19/22 History Q-10) ascorbic acid 1,000 1 ea PO DAILY 08/08/20 11/19/22 History ht-yzqmvuihdmlr-ifzczswa powder effervescent pack (Emergen-C) calcium carb-vit S6-ksfmbkobx-xfqd 1 tablet PO DAILY 08/08/20 11/19/22 History 333 mg-200 unit-133 mg-5 mg tablet glucosamine 750 kg-rkmzkcmjpfj-lnu 1 tablet PO DAILY 08/20/21 11/19/22 History no1 644 mg-C 30 mg-nicole 1 mg tablet (Osteo Bi-Flex Triple Strength) hydrocortisone 2.5 % topical cream 1 applic RECTAL DAILY PRN 08/19/22 11/19/22 Rx with perineal applicator hemorrhoids #30 grams (Anusol-HC) acetaminophen 325 mg tablet 325 mg PO Q6H PRN Pain 08/26/22 11/19/22 History (Tylenol) sodium,potassium,mag sulfates 17.5 See Rx Instructions PO .COMPLEX 09/27/22 11/19/22 Rx gram-3.13 gram-1.6 gram oral soln #354 mL (Suprep Bowel Prep Kit) losartan 100 1 tablet PO DAILY #90 tabs 10/09/22 11/19/22 Rx mg-hydrochlorothiazide 12.5 mg tablet Cbd Cream 1 applic DAILY PRN Pain 10/18/22 11/19/22 History cholecalciferol (vitamin D3) 50 50 mcg PO DAILY 10/18/22 11/19/22 History mcg (2,000 unit) capsule (Vitamin D3) lactobacillus combination no.8 3 1 cell PO DAILY 10/18/22 11/19/22 History billion cell capsule polyethylene glycol 3350 17 17 g PO DAILY PRN Constipation 10/18/22 11/19/22 History gram/dose oral powder (Miralax) simvastatin 20 mg tablet 20 mg PO QHS #90 tabs 11/18/22 11/19/22 Rx Allergies Allergy/AdvReac Type Severity Reaction Status Date / Time No Known Allergies Allergy Verified 11/19/22 07:29 Vital Signs Vital Signs - 24
[2022-11-19 09:05] VITALS: BP 87/49; PULSE 81; RESP 16; O2SAT 98
[2022-11-19 09:15] VITALS: BP 132/70; PULSE 76; RESP 16; O2SAT 100
[2022-11-19 09:25] VITALS: BP 132/70; PULSE 76; RESP 16; O2SAT 100
== END 2022-11-19 09:44 | disposition home or self-care (01) ==
PROVIDERS: PCP Family Medicine; Visit Provider Internal Medicine Gastroenterology
PROC: 0DJD8ZZ Inspection of Lower Intestinal Tract, Via Natural or Artificial Opening Endoscopic (ICD-10-PCS; CPT 45378; principal; 2022-11-19 08:30)
DX: Z12.11 Encounter for screening for malignant neoplasm of colon (principal); R19.5 Other fecal abnormalities; K64.8 Other hemorrhoids; I10 Essential (primary) hypertension; E78.5 Hyperlipidemia, unspecified; H40.9 Unspecified glaucoma
CPT/HCPCS: G0121; J2704; J7120

== ENCOUNTER 2022-12-11 12:30 | Outpatient (RCR) | payer MEDICARE, OTHER, SELFPAY ==
--- NOTE | 2022-09-17 17:31 | PTOPEVAL1 ---
Assessment and note entered by Carolyne Monte, PT Evaluation Information Assessment Status Evaluation Diagnosis pain in low back, bilat LEs, sacroiliatis Onset 05/2022 Subjective Information Reports pain came on slowly. Difficulty with first getting up in the morning reports LLE numbness, is seeing a chiropractic once a week. Pt reports also receives lidocaine shots weekly at that office Reported Pain Level Pain Score 0/10 at rest and up to 8/10 with activity Assessment PT Clinical Summary Pt reports back pain and burning at times in pelvic floor. She notes her back pain and burning tend to coincide, with aggravating factors including standing and walking. Notes pain subsides often with sitting. Pt demo's severely reduced strength in the transverse abdominal muscles, glute med and max bilaterally. She also demo's abnormal pelvic position with inominate upslip and possible leg length discrepancy. Pain in pelvic floor appears to be muscle spasm related likely as a compensatory measure to weak lumbopelvic stabilizer musculature. Thus patient will benefit from physical therapy to address alignment, strength, and stability to reduce pain and improve functional activity level. Plan of Care Interventions Electrical Stimulation,Hot Pack/Cold Pack,Manual Therapy,Neuro Re-education,Therapeutic Activities, Therapeutic Exercise,Self-Care/Home Management PT Services Indicated Yes Treatment Frequency and 1-2x weekly x 4 weeks Duration These treatments will address the objective and functional deficits as defined above. The patient will be advanced safely and appropriately in order for the patient to progress towards his/her prior level of function. Additional exercises will be introduced and as well as a comprehensive home exercise program upon discharge, if needed, ?to ensure carryover of functional gains achieved in the clinic. This treatment plan has been reviewed and agreement upon by the patient.
--- NOTE | 2022-10-22 14:26 | PTOPPROG ---
Assessment and note entered by Maria De Jesus Haque DPT Evaluation Information Assessment Status Progress Diagnosis pain in low back, bilat LEs, sacroiliatis Onset 05/2022 Subjective Information Pt reports her pain is most significant in her pelvis, feels a burning. Unsure cause, will last about 5 minutes and position changes would help somewhat. Numbness in her L hip (also has previous bilateral ANDRE's). Feels tingling in her back as well. Highest pain 8/10 and lowest 1/10. Pain started in May 2022 and has worsened over time. Insidious onset. Urinates 10-15 times a day, 1-2 times at night. Can hold urine 20-30 minutes. Denies pain with urination. BM daily, not painful currently. Last pelvic exam reports discomfort, but not her typical pain. Denies history of painful intercourse, tampon use, etc. Assessment PT Clinical Summary The patient is presenting to skilled therapy with LBP and significant pelvic pain. Lumbar extension reproduces her pelvic pain and she presents with tenderness to bilateral PSIS and sacrum. She will benefit from further therapy to address these impairments and reduce her pain and dysfunction. She may also benefit from more specific pelvic floor assessments if her pain remains unchanged. Plan of Care Interventions Electrical Stimulation,Gait Training,Hot Pack/Cold Pack,Manual Therapy,Neuro Re-education,Patient/ Caregiver Education,Therapeutic Activities, Therapeutic Exercise,Self-Care/Home Management PT Services Indicated Yes Treatment Frequency and 1-2 times a week for 4 weeks Duration These treatments will address the objective and functional deficits as defined above. The patient will be advanced safely and appropriately in order for the patient to progress towards his/her prior level of function. Additional exercises will be introduced and as well as a comprehensive home exercise program upon discharge, if needed, ?to ensure carryover of functional gains achieved in the clinic. This treatment plan has been reviewed and agreement upon by the patient.
--- NOTE | 2022-11-27 14:56 | PTOPPROG ---
Assessment and note entered by Maria De Jesus Haque DPT Evaluation Information Assessment Status Progress Diagnosis pain in low back, bilat LEs, sacroiliatis Onset 05/2022 Subjective Information Highest pain in the last week 02/03. Pt reports she has been feeling better with therapy. Pain is not as intense or as often anymore. Notices pain with prolonged positions like standing or sitting for an hour. Noticed it just recently while sitting to work on her taxes Assessment PT Clinical Summary The patient has made good progress in therapy and reports a decrease in her pain intensity and frequency. She demonstrates no tenderness to palpation this visit or pain with repeated lumbar movements. She continues to have some pain with prolonged positioning like while sitting to work on her taxes. Due to her progress but continued pain, plan to continue therapy to further decrease pain and dysfunction. Plan of Care Interventions Hot Pack/Cold Pack,Manual Therapy,Neuro Re- education,Patient/Caregiver Education,Therapeutic Activities,Therapeutic Exercise,Self-Care/Home Management PT Services Indicated Yes Treatment Frequency and 1 time a week for 4 weeks Duration These treatments will address the objective and functional deficits as defined above. The patient will be advanced safely and appropriately in order for the patient to progress towards his/her prior level of function. Additional exercises will be introduced and as well as a comprehensive home exercise program upon discharge, if needed, ?to ensure carryover of functional gains achieved in the clinic. This treatment plan has been reviewed and agreement upon by the patient.
--- NOTE | 2022-12-16 10:10 | PCPTNOTE ---
This treatment is being continued on visit number [id number]. Please see documentation on both accounts to view progress. Completed interventions, outcomes, and problems have been marked as Inactive to facilitate the copying of the Care plan routine for recurring accounts.
== END 2022-12-12 13:31 | disposition home or self-care (01) ==
LOC: ANHGOSHPT 12:30
PROVIDERS: PCP Nurse Practitioner Family; Visit Provider Family Medicine
DX: M54.50 Low back pain, unspecified (principal); M79.604 Pain in right leg; M79.605 Pain in left leg; M47.816 Spondylosis without myelopathy or radiculopathy, lumbar region; M46.1 Sacroiliitis, not elsewhere classified
CPT/HCPCS: 97110; 97112; 97140; 97162

== ENCOUNTER 2022-12-25 11:00 | Outpatient (RCR) | payer MEDICARE, OTHER, SELFPAY ==
--- NOTE | 2022-12-16 10:11 | PCPTNOTE ---
The treatment documented on this account is a continuation of the treatment documented on visit number [id number]. Please see documentation on both accounts to view progress. The Plan of Care has been transitioned and updated within the new V#. I have addressed and agree with the discipline specific Problems, Interventions, and Goals for the current certification period. Completed interventions, outcomes, and problems have been marked as Inactive to facilitate the copying of the Care plan routine for recurring accounts.
--- NOTE | 2022-12-25 11:30 | PTOPDC ---
Assessment and note entered by Maria De Jesus Haque DPHarper Evaluation Information Assessment Status Discharge Subjective Information Pt reports she is feeling good currently but had a flare up of pain over the weekend. Unsure what caused it. Did not do anything out of the ordinary other than moving her washer a little after it had gotten out of place. Highest pain 4/10 and lowest 0/10. Feels therapy has continued to help, less difficulty walking her dog, was able to sit and play cards recently without much issue. Pain is also not as often. Reported Pain Level Pain Score 0: Self Report Assessment PT Clinical Summary The patient has continued to make good progress in therapy and reports no functional limitations at this time. She continues to report her pain is occurring less often. Due to her progress, plan to discharge at this time. She has been educated to continue her HEP and to follow up with MD and/or PT as needed. Plan of Care PT Services Indicated No
== END 2022-12-25 13:39 | disposition home or self-care (01) ==
LOC: ANHGOSHPT 11:00
PROVIDERS: PCP Family Medicine; Visit Provider Family Medicine
DX: M54.50 Low back pain, unspecified (principal); M79.604 Pain in right leg; M79.605 Pain in left leg; M47.816 Spondylosis without myelopathy or radiculopathy, lumbar region; M46.1 Sacroiliitis, not elsewhere classified
CPT/HCPCS: 97110; 97112

== ENCOUNTER 2023-02-14 07:56 | Outpatient (CLI) | payer MEDICARE, OTHER, SELFPAY ==
--- NOTE | ~2023-02-14 | DEXA_ITS ---
Bone Density Report Name: DEJUAN TAYLOR Age: 77 Sex: Female Ethnicity: White Date of : 1945 Indication: postmenopausal; screening for osteoporosis; height loss; Referring Provider: CLARK ZULUAGA Study: Bone densitometry was performed. Exam Date: February 14, 2023 Accession number: [id number] Bone Density: Region BMD T-score Z-score Classification AP Spine(L1-L4) 1.124 0.7 3.2 Normal World Health Organization criteria for BMD impression classify patients as: Normal (T-score at or above -1.0), Osteopenia (T-score between -1.0 and -2.5), or Osteoporosis (T-score at or below -2.5). Clinical Information Provided by Patient: Has used the following medications: Vitamin D, Calcium Patient maximum height was 64 Drinks caffeinated beverages Onset of menses at age 11 Number of children 2 Impression: The patient has normal bone mass. Discussion: LOW RISK OF FRACTURE; BONE DENSITY IS WELL ABOVE THE MINIMUM DESIRABLE LEVEL AND ABOVE AVERAGE FOR AGE AND SEX AT ALL SKELETAL SITES TESTED. This person's bone density is above expected limits for age and sex. This is rarely clinically significant, but should be pursued if there are significant musculoskeletal complaints. The patient should follow a healthful lifestyle (good nutrition with adequate calcium and vitamin D, and appropriate weight-bearing exercise). Follow-Up: Consider repeating this study in 5 years or sooner if there is some new clinical indication. Reported by: [facility] on 02/14/2023 8:14:00 AM. Reviewed, dictated and finalized at location Gisell TAO
== END 2023-02-14 07:57 | disposition home or self-care (01) ==
PROVIDERS: PCP Family Medicine; Visit Provider Family Medicine
DX: Z78.0 Asymptomatic menopausal state (principal)
CPT/HCPCS: 77080

== ENCOUNTER 2023-03-11 08:59 | Outpatient (CLI) | payer MEDICARE, OTHER, SELFPAY ==
[2023-03-11 19:10] LABS: Alanine Aminotransferase 19 U/L (6-35); Alkaline Phosphatase 68 U/L (38-126); Anion Gap 5 mmol/L (8-16); Aspartate Amino Transferase 37 U/L (14-36); Bilirubin,Total 0.6 mg/dL (0.2-1.3); Blood Urea Nitrogen 18 mg/dL (7-17); Carbon Dioxide 31 mmol/L (22-30); Chloride 103 mmol/L (98-107); Estimated Glomerular Filt Rate > 60; Glucose 88 mg/dL (65-110); Potassium 3.7 mmol/L (3.4-5.0); Sodium 139 mmol/L (137-145)
== END 2023-03-11 09:00 | disposition home or self-care (01) ==
LOC: ANHGOSHLAB 09:03
PROVIDERS: PCP Family Medicine; Visit Provider Family Medicine
DX: E78.5 Hyperlipidemia, unspecified (principal); I10 Essential (primary) hypertension
CPT/HCPCS: 36415; 80053

== ENCOUNTER 2023-09-04 09:58 | Outpatient (CLI) | payer MEDICARE, OTHER, SELFPAY ==
[2023-09-04 12:00] LABS: Basophils Percent Auto 0.4 % (0.2-1.2); Eosinophils Absolute Auto 0.1 K/mm3 (0-0.3); Eosinophils Percent Auto 1.3 % (0-4.4); Hematocrit 41.2 % (37.0-47.0); Hemoglobin 13.5 g/dL (12.0-15.0); Immature Granulocyte Absolute 0.01 K/mm3 (0.00-0.031); Immature Granulocyte Percent A 0.2 % (0-0.5); Lymphocytes Absolute Auto 1.38 K/mm3 (0.9-3.2); Lymphocytes Percent Auto 30.7 % (18.3-44.2); Mean Corpuscular HGB Conc 32.8 g/dl (32-36); Mean Corpuscular Hemoglobin 31.9 pg (26-34); Mean Corpuscular Volume 97.4 fl (80-100); Mean Platelet Volume 9.8 fl (7.4-10.4); Monocytes Absolute Auto 0.5 K/mm3 (0.1-0.6); Monocytes Percent Auto 10.2 % (2.6-8.5); Neutrophils Absolute Auto 2.6 K/mm3 (1.3-6.7); Neutrophils Percent Auto 57.2 % (45.5-73.1); Platelet Count Result 215 k/mm3 (150-375); Red Blood Count 4.23 M/mm3 (4.2-5.4); Red Cell Distribution Width 12.5 % (11.5-14.5); White Blood Count 4.5 K/mm3 (4.5-10.0)
[2023-09-04 12:25] LABS: Alanine Aminotransferase 18 U/L (6-35); Albumin Level 4.1 g/dL (3.5-5.1); Alkaline Phosphatase 67 U/L (38-126); Anion Gap 5 mmol/L (8-16); Aspartate Amino Transferase 36 U/L (14-36); Bilirubin,Total 0.7 mg/dL (0.2-1.3); Blood Urea Nitrogen 17 mg/dL (7-17); Calcium 9.6 mg/dL (8.4-10.2); Carbon Dioxide 30 mmol/L (22-30); Chloride 105 mmol/L (98-107); Cholesterol 181 mg/dL (0-200); Estimated Glomerular Filt Rate > 60; Glucose 94 mg/dL (65-110); HDL Direct 48 mg/dL; Potassium 3.6 mmol/L (3.4-5.0); Sodium 140 mmol/L (137-145); Triglycerides 176 mg/dL (<150)
[2023-09-04 12:36] LABS: LDL Cholesterol Direct 47 mg/dL; Vitamin D 25 Hydroxy 44.3 ng/mL
[2023-09-04 14:07] LABS: Hemoglobin A1C 5.3 % (<5.7)
== END 2023-09-04 09:59 | disposition home or self-care (01) ==
LOC: ANHGOSHLAB 10:00
PROVIDERS: PCP Family Medicine; Visit Provider Nurse Practitioner Family
DX: E53.8 Deficiency of other specified B group vitamins (principal); I10 Essential (primary) hypertension; Z13.220 Encounter for screening for lipoid disorders; R73.03 Prediabetes; E55.9 Vitamin D deficiency, unspecified; M85.80 Other specified disorders of bone density and structure, unspecified site; Z13.29 Encounter for screening for other suspected endocrine disorder; Z00.00 Encounter for general adult medical examination without abnormal findings
CPT/HCPCS: 36415; 80053; 80061; 82306; 82607; 83036; 84443; 85025

== ENCOUNTER 2023-11-05 09:36 | Outpatient (CLI) | payer MEDICARE, OTHER, SELFPAY ==
--- NOTE | ~2023-11-05 | MM_ITS ---
EXAMINATION: MM screening amado BI w stephanie HISTORY: Screening mammogram TECHNIQUE: Craniocaudal and mediolateral oblique 3-D tomosynthesis images were obtained and synthetic 2-D images were generated. CAD analysis was submitted and interpreted. COMPARISON: 06/21/2022, 6 I bilateral screening mammogram examinations BREAST PARENCHYMAL COMPOSITION: There are scattered areas of fibroglandular density. FINDINGS: There is no evidence of suspicious mass, calcification, or architectural distortion to sugg est malignancy in either breast. There has been no suspicious interval change. IMPRESSION: 1. No mammographic evidence of malignancy. 2. Recommend routine screening mammography in one year. BI-RADS Category 1: Negative Reviewed, dictated and finalized at location B. ATE INVESTIGATOR SURVEILLANCE
== END 2023-11-05 09:37 | disposition home or self-care (01) ==
LOC: ANHIMG 09:40
PROVIDERS: PCP Family Medicine; Visit Provider Family Medicine
DX: Z12.31 Encounter for screening mammogram for malignant neoplasm of breast (principal)
CPT/HCPCS: 77063; 77067

== ENCOUNTER 2024-03-10 10:16 | Outpatient (CLI) | payer MEDICARE, OTHER, SELFPAY ==
[2024-03-10 19:17] LABS: Basophils Percent Auto 0.5 % (0.2-1.2); Eosinophils Absolute Auto 0.1 K/mm3 (0-0.3); Eosinophils Percent Auto 1.4 % (0-4.4); Hematocrit 41.8 % (37.0-47.0); Hemoglobin 13.8 g/dL (12.0-15.0); Lymphocytes Absolute Auto 1.58 K/mm3 (0.9-3.2); Lymphocytes Percent Auto 37.4 % (18.3-44.2); Mean Corpuscular Hemoglobin 32.1 pg (26-34); Mean Corpuscular Volume 97.2 fl (80-100); Mean Platelet Volume 10.3 fl (7.4-10.4); Monocytes Absolute Auto 0.4 K/mm3 (0.1-0.6); Monocytes Percent Auto 9.2 % (2.6-8.5); Neutrophils Absolute Auto 2.2 K/mm3 (1.3-6.7); Neutrophils Percent Auto 51.5 % (45.5-73.1); Platelet Count Result 208 k/mm3 (150-375); Red Cell Distribution Width 12.5 % (11.5-14.5); White Blood Count 4.2 K/mm3 (4.5-10.0)
[2024-03-10 19:40] LABS: LDL Cholesterol Direct 40 mg/dL
[2024-03-10 19:54] LABS: Alanine Aminotransferase 14 U/L (6-35); Albumin Level 4.1 g/dL (3.5-5.1); Alkaline Phosphatase 71 U/L (38-126); Anion Gap 6 mmol/L (4-12); Aspartate Amino Transferase 31 U/L (14-36); Bilirubin,Total 0.7 mg/dL (0.2-1.3); Blood Urea Nitrogen 20 mg/dL (7-17); Calcium 9.3 mg/dL (8.4-10.2); Carbon Dioxide 28 mmol/L (22-30); Chloride 106 mmol/L (98-107); Cholesterol 153 mg/dL (0-200); Estimated Glomerular Filt Rate > 60; Glucose 85 mg/dL (65-110); HDL Direct 45 mg/dL; Potassium 3.8 mmol/L (3.4-5.0); Sodium 140 mmol/L (137-145); Triglycerides 153 mg/dL (<150)
[2024-03-10 21:24] LABS: Hemoglobin A1C 5.4 % (<5.7)
== END 2024-03-10 10:17 | disposition home or self-care (01) ==
LOC: ANHGOSHLAB 10:18
PROVIDERS: PCP Family Medicine; Visit Provider Nurse Practitioner Family
DX: E78.5 Hyperlipidemia, unspecified (principal); I10 Essential (primary) hypertension; M85.80 Other specified disorders of bone density and structure, unspecified site; R49.0 Dysphonia; R73.03 Prediabetes; Z13.29 Encounter for screening for other suspected endocrine disorder; Z00.00 Encounter for general adult medical examination without abnormal findings
CPT/HCPCS: 36415; 80053; 80061; 83036; 84443; 85025

== ENCOUNTER 2024-09-14 09:54 | Outpatient (CLI) | payer MEDICARE, OTHER, SELFPAY ==
[2024-09-14 13:28] LABS: Alanine Aminotransferase 16 U/L (6-35); Albumin Level 4.1 g/dL (3.5-5.1); Alkaline Phosphatase 70 U/L (38-126); Anion Gap 6 mmol/L (4-12); Aspartate Amino Transferase 49 U/L (14-36); Bilirubin,Total 0.6 mg/dL (0.2-1.3); Blood Urea Nitrogen 17 mg/dL (7-17); Calcium 9.4 mg/dL (8.4-10.2); Carbon Dioxide 29 mmol/L (22-30); Chloride 105 mmol/L (98-107); Cholesterol 157 mg/dL (0-200); Estimated Glomerular Filt Rate > 60; Glucose 88 mg/dL (65-110); HDL Direct 54 mg/dL; Potassium 4.1 mmol/L (3.4-5.0); Sodium 140 mmol/L (137-145); Triglycerides 146 mg/dL (<150)
[2024-09-14 13:41] LABS: LDL Cholesterol Direct 32 mg/dL
[2024-09-14 13:48] LABS: Basophils Percent Auto 0.5 % (0.2-1.2); Eosinophils Absolute Auto 0.1 K/mm3 (0-0.3); Eosinophils Percent Auto 1.4 % (0-4.4); Hematocrit 43.1 % (37.0-47.0); Hemoglobin 14.1 g/dL (12.0-15.0); Immature Granulocyte Absolute 0.01 K/mm3 (0.00-0.031); Immature Granulocyte Percent A 0.2 % (0-0.5); Lymphocytes Absolute Auto 1.67 K/mm3 (0.9-3.2); Lymphocytes Percent Auto 38.5 % (18.3-44.2); Mean Corpuscular HGB Conc 32.7 g/dl (32-36); Mean Corpuscular Hemoglobin 31.8 pg (26-34); Mean Corpuscular Volume 97.1 fl (80-100); Mean Platelet Volume 9.9 fl (7.4-10.4); Monocytes Absolute Auto 0.4 K/mm3 (0.1-0.6); Monocytes Percent Auto 8.5 % (2.6-8.5); Neutrophils Absolute Auto 2.2 K/mm3 (1.3-6.7); Neutrophils Percent Auto 50.9 % (45.5-73.1); Platelet Count Result 210 k/mm3 (150-375); Red Blood Count 4.44 M/mm3 (4.2-5.4); Red Cell Distribution Width 12.4 % (11.5-14.5); White Blood Count 4.3 K/mm3 (4.5-10.0)
[2024-09-14 14:34] LABS: Vitamin D 25 Hydroxy 59.1 ng/mL
[2024-09-14 15:40] LABS: Hemoglobin A1C 5.8 % (<5.7)
== END 2024-09-14 09:55 | disposition home or self-care (01) ==
PROVIDERS: PCP Family Medicine; Visit Provider Family Medicine
DX: G89.29 Other chronic pain (principal); M54.50 Low back pain, unspecified; Z00.00 Encounter for general adult medical examination without abnormal findings; I10 Essential (primary) hypertension; E53.8 Deficiency of other specified B group vitamins; E55.9 Vitamin D deficiency, unspecified; R73.9 Hyperglycemia, unspecified; E78.5 Hyperlipidemia, unspecified
CPT/HCPCS: 36415; 80053; 80061; 82306; 82607; 83036; 84443; 85025

== ENCOUNTER 2024-11-18 09:35 | Outpatient (CLI) | payer MEDICARE, OTHER, SELFPAY ==
--- NOTE | ~2024-11-18 | MM_ITS ---
EXAMINATION: MM screening amado BI w stephanie HISTORY: Screening TECHNIQUE: Craniocaudal and mediolateral oblique 3-D tomosynthesis images were obtained and synthetic 2-D images were generated. CAD analysis was submitted and interpreted. COMPARISON: Comparison to multiple prior studies sequentially, with oldest reviewed study dated 05/07. BREAST PARENCHYMAL COMPOSITION: Not dense: There are scattered areas of fibroglandular density. FINDINGS: There is a most marked bilaterally. There is no evidence of suspicious mass, calcification, or architectural distortion to suggest malignancy in either breast. There has been no suspicious int erval change. IMPRESSION: 1. No mammographic evidence of malignancy. 2. Recommend routine screening mammography in one year. BI-RADS Category 1: Negative Reviewed, dictated and finalized at location A. RIOR DESIGN PROFESSOR
== END 2024-11-18 09:36 | disposition home or self-care (01) ==
PROVIDERS: PCP Family Medicine; Visit Provider Family Medicine
DX: Z12.31 Encounter for screening mammogram for malignant neoplasm of breast (principal)
CPT/HCPCS: 77063; 77067

== ENCOUNTER 2024-11-24 11:18 | Outpatient (CLI) | payer MEDICARE, OTHER, SELFPAY ==
--- OUTSIDE RECORDS SUMMARY | 2024-11-24 03:15 | XMS_ITS | Referral Summary ---
Author Organization [facility] D Address [address] [place] [address] Care Team Providers Care Rn Immunology Name Role Phone Radha Ansari MD Primary Care Provider Allergies No known active allergies Medications alendronate (FOSAMAX) 70 mg tablet take 1 tablet by oral route every week in the morning, at least 30 min before first food, beverage, or medication of day 0 0 5 Active simvastatin (ZOCOR) 20 mg tablet Take 1 tablet (20 mg total) by mouth nightly. 90 tablet 3 8 Active losartan-hydroCH LOROthiazide (HYZAAR) 50-12.5 mg per tablet Take 1 tablet by mouth every morning Active celecoxib (CeleBREX) 100 mg capsuleIndicatio ns:Aftercare following right hip joint replacement surgery TAKE 2 PILLS WITH BREAKFAST THE DAY BEFORE SURGERY. TAKE 1 PILL BID AFTER DISCHARGE. 10 capsule 8 Active aspirin 325 mg EC tabletIndication s:Deep Vein Thrombosis Prevention Take 1 tablet (325 mg total) by mouth 2 (two) times a day. 90 tablet 8 Active senna-docusate (PERICOLACE) 8.6-50 mgIndications:co nstipation Take 2 tablets by mouth 2 (two) times a day. 80 tablet 1 8 Active HYDROcodone-acet aminophen (NORCO) 5-325 mg per tabletIndication s:Pain Take 1 tablet by mouth every 4 (four) hours as needed for pain. 70 tablet 8 Active oxyCODONE-acetam inophen (PERCOCET) 5-325 mg per tabletIndication s:Pain Take 1 tablet by mouth every 4 (four) hours as needed for pain Active cetirizine (ZyrTEC) 10 mg tabletIndication s:allergy to adhesive Take 1 tablet (10 mg total) by mouth daily Active hydrocortisone 2.5 % lotionIndication s:Skin Inflammation Apply 1 application topically 2 (two) times a day. apply to reddened area, but not on Prineo Active polyethylene glycol (Miralax) 17 gram/dose bulk powderIndication s:constipation Take 17 g by mouth daily as needed (constipation) Active ibuprofen (ADVIL,MOTRIN) 800 mg tablet TK 1 T PO Q 8 H 0 8 Active Hospital, Clinic, or Other Facility Administered Medication Ordered Dose Route Frequency Start Date End Date Status hydrocortisone 2.5 % creamIndications:Afterc are following right hip joint replacement surgery topical 2 times daily 08/28/2018 Active Active Problems Problem Noted Date Diagnosed Date Aftercare following right hip joint replacement surgery 11/18/2018 Aftercare following joint replacement 08/28/2018 Overview (08/28/2018): Right hip arthroplasty Aftercare following left hip joint replacement s urgery 07/31/2018 Primary osteoarthritis of right hip 06/17/2018 Overview (06/17/2018): Added automatically from request for surgery [id number] Aftercare following left hip joint replacement s urgery 03/04/2018 Joint pain, hip 03/02/2018 Other chest pain 12/31/2017 Assessment & Plan (12/31/2017 7:48 PM CARDIOVASCULAR TECH): Atypical and nonexertional. Nothing to suggest myocardial ischemia. She was reassured Mixed hyperlipidemia 12/31/2017 Assessment & Plan (12/31/2017 7:49 PM CARDIOVASCULAR TECH): LDL is mildly above target. Essential hypertension 12/31/2017 Assessment & Plan (12/31/2017 7:49 PM CARDIOVASCULAR TECH): Blood pressure is adequately controlled on current regimen. No change was made. Immunizations Name Administration Dates Next Due Influenza, Trivalent, High D ose, Split, Preservative Free, Intramuscular 08/26/2018(Deferred: Patient Refused - pt would like to wait until after follow up),08/26/2018(Deferred: Patient Refused) Social History Tobacco Use Types Packs/Day Years Used Date Smoking Tobacco: Never Smokeless Tobacco: Never Alcohol Use Standard Drinks/Week Comments Yes 1 (1 standard drink = 0.6 oz pur e alcohol) Comments Unknown Sex and Gender Information Value Date Recorded Sex Assigned at Not on file Legal Sex Female 10:54 AM CARDIOVASCULAR TECH Gender Identity Not on file Sexual Orientation Not on file Last Filed Vital Signs Vital Sign Reading Time Taken Comments Blood Pressure 142/86 07/26/2024 3:20 PM CDT Pulse 80 07/26/2024 3:20 PM CDT Temperature 36.8 ??C (98.2 ??F) 07/26/2024 3:20 PM CD T Respiratory Rate 14 07/26/2024 3:20 PM CDT Oxygen Saturation 99% 07/26/2024 3:20 PM CDT Inhaled Oxygen Concentration - - Weight 65.3 kg (144 lb) 07/26/2024 3:20 PM CDT Height 157.5 cm (5' 2 ) 07/26/2024 3:20 PM CDT Body Mass Index 26.34 07/26/2024 3:20 PM CDT Plan of Treatment Not on file Medical Devices Implanted Type Area Postal Clerk Device Identifier Shelf Expiration Date Model / Serial / Lot [employer] [id number] 52mm Limit Hole Hip E Hemisphere Shell Acetabular Pps - S0 - [id number] Implanted:Qty: 1 on 05/19/2018 by Missael Bentley MD at [facility] Left: Hip [employer] [id number] 04/22/2028 [id number] / 0 / [id number] [employer] [id number] G7 36mm High Wall Hip E Liner Acetabular Arcomxl - S0 - [id number] Implanted:Qty: 1 on 05/19/2018 by Missael Bentley MD at [facility] Left: Hip [employer] [id number] 01/21/2023 [id number] / 0 / [id number] [employer] [id number] Taperloc 137mm Type 1 Press Fit Full Profile Hip 133d 9 Standard - S0 - [id number] Implanted:Qty: 1 on 05/19/2018 by Missael Bentley MD at [facility] Left: Hip [employer] 12/09/2027 [id number] / 0 / [id number] [employer] [id number] 36mm Modular Hip Standard Head Femoral Biolox Delta - S0 - [id number] Implanted:Qty: 1 on 05/19/2018 by Missael Bentley MD at [facility] Left: Hip [employer] [id number] 03/14/2027 [id number] / 0 / [id number] [employer] [id number] G7 54mm Limit Hole Color Coded Hip F Offset Hemisphere Shell - S0 - [id number] Implanted:Qty: 1 on 08/25/2018 by Missael Bentley MD at [facility] Right: Hip [employer] [id number] 07/26/2028 [id number] / 0 / [id number] Liner Acetabular G7 Arcomxl F Id36 Mm Hip High Wall - S0 - [id number] Implanted:Qty: 1 on 08/25/2018 by Missael Bentley MD at [facility] Right: Hip [employer] [id number] 06/26/2022 [id number] / 0 / [id number] [employer] [id number] Taperloc 150mm Type 1 Press Fit Full Profile Hip 133d 15 High - S0 - [id number] Implanted:Qty: 1 on 08/25/2018 by Missael Bentley MD at [facility] Right: Hip [employer] 12/23/2027 [id number] / 0 / [id number] [employer] [id number] 36mm Modular Hip Standard Head Femoral Biolox Delta - S1 - [id number] Implanted:Qty: 1 on 08/25/2018 by Missael Bentley MD at [facility] Right: Hip [employer] [id number] 03/25/2028 [id number] / 1 / [id number] Insurance MEDICARE RAILROAD [facility] H[facility]/PPO Address: [facility] [address] [place] [address] MEDICARE RAILROAD [facility] MEDICARE RAILROAD [facility] CHOICE PLUS [facility] H[facility]/PPO Address: [address] [address] [place] [address] MEDICARE [employer]oo [facility] H[facility]/PPO Address: [address] [place] [address] Advance Directives For more information, please contact: [phone] * Full Code (Latest Code Status on File) Date Activated Date Inactivated Comments 08/25/2018 9:51 AM 08/26/2018 1:41 PM * Full Code Date Activated Date Inactivated Comments 05/19/2018 12:46 PM 05/20/2018 12:42 PM Care Teams Rn Immunology Relationship Specialty Start Date End Date Radha Ansari MD PCP - General Family Practice 12/01/17
--- OUTSIDE RECORDS SUMMARY | 2024-11-24 03:15 | XMS_ITS | Encounter Summary ---
Author Organization [facility] Healthcare Address [address] [place] [address] Care Team Providers Care Jackspooler Name Role Phone Radha Ansari MD Primary Care Provider Encounter Details Date Type Department Care Team (Late st Contact Info) Description 05/20/2018 Documentation [facility] [address] [facility] [place] [address] Susan Jhaveri RN Social History Tobacco Use Types Packs/Day Years Used Date Smoking Tobacco: Never Smokeless Tobacco: Never Alcohol Use Standard Drinks/Week Comments Yes 1 (1 standard drink = 0.6 oz pur e alcohol) Comments Unknown Sex and Gender Information Value Date Recorded Sex Assigned at Not on file Legal Sex Female 10:54 AM SENIOR NET ARCHITECT Gender Identity Not on file Sexual Orientation Not on file documented as of this encounter Plan of Treatment Not on file documented as of this encounter Visit Diagnoses Not on filedocumented in this encounter Care Teams Jackspooler Relationship Specialty Start Date End Date Radha Ansari MD PCP - General Family Practice 12/01/17 documented as of this encounter
--- OUTSIDE RECORDS SUMMARY | 2024-11-24 03:15 | XMS_ITS | Clinical Summary ---
Author Organization [facility] D Address [address] [place] [address] Care Team Providers Care Gas Station Clerk Name Role Phone Radha Ansari MD Primary [...] (06/17/2018): Added automatically from request for surgery [id number] Aftercare following left hip joint replacement s urgery 03/04/2018 Joint pain, hip 03/02/2018 Other chest pain 12/31/2017 Assessment & Plan (12/31/2017 7:48 PM SOCIAL MEDIA EDITOR): Atypical and nonexertional. Nothing to suggest myocardial ischemia. She was reassured Mixed hyperlipidemia 12/31/2017 Assessment & Plan (12/31/2017 7:49 PM SOCIAL MEDIA EDITOR): LDL is mildly above target. Essential hypertension 12/31/2017 Assessment & Plan (12/31/2017 7:49 PM SOCIAL MEDIA EDITOR): Blood pressure is adequately controlled on current regimen. No change was made. 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 TUBAL LIGATION COLONOSCOPY OTHER SURGICAL HISTORY Bilateral stem cell transplant TOTAL HIP ARTHROPLASTY 04/26/2018 - 05/26/2018 Left Medical History Medical History Date Comments Osteoarthritis Osteoarthritis - (Added by TW Conv) Hypertension Hyperlipidemia Rheumatoid arthritis (HCC) Osteoporosis PONV (postoperative nausea and vomiting) 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 Family History Medical History Relation Name Comments Heart disease Brother 1 Heart disease Brother 2 No Known Problems Father No Known Problems Father's Brother No Known Problems Father's Sister No Known Problems Maternal Grandfather No Known Problems Maternal Grandmother Heart disease Mother Family history of cardiac disorder - (Added by TW Conv) No Known Problems Mother's Brother No Known Problems Mother's Sister Depression Paternal Grandfather No Known Problems Paternal Grandmother No Known Problems Sister Anemia Neg Hx Arrhythmia Neg Hx Asthma Neg Hx Clotting disorder Neg Hx Fainting Neg Hx Heart attack Neg Hx Heart failure Neg Hx Hyperlipidemia Neg Hx Hypertension Neg Hx Hypertrophic cardiomyopathy Neg Hx Stroke Neg Hx Sudden Cardiac Neg Hx Relation Name Status Comments Brother 1 Brother 2 Father Father's Brother Father's Sister Maternal Grandfather Maternal Grandmother Mother Mother's Brother Mother's Sister Paternal Grandfather Paternal Grandmother Sister Social History Tobacco Use Types Packs/Day Years Used Date Smoking Tobacco: Never Smokeless Tobacco: Never Alcohol Use Standard Drinks/Week Comments Yes 1 (1 standard drink = 0.6 oz pur e alcohol) Comments Unknown Sex and Gender Information Value Date Recorded Sex Assigned at Not on file Legal Sex Female 10:54 AM SOCIAL MEDIA EDITOR Gender Identity Not on file Sexual Orientation Not on file Obstetrics History Last Filed Vital Signs Vital Sign Reading [...] 07/26/2024 3:20 PM CDT Plan of Treatment Health Maintenance Due Date Last Done Comments Depression Screening 1945 Fall Risk Assessment 1945 Hepatitis C Screening 1945 Osteoporosis Screening-Bone Density Scan 1945 DTaP/Tdap/Td Vaccine (1 - Tdap) 1956 Hepatitis B Screening 1963 Zoster Vaccine (1 of 2) 1995 Pneumococcal vaccine 65+ (1 of 1 - PCV) 2010 Well Visit 65+ 2010 Covid-19 Vaccine (3 - season) 2024, 12/21/2020 Influenza Vaccine (#1) 2024 08/26/2022, 2019 Medical Devices Implanted Type Area Commercial Real Estate Attorney Device Identifier Shelf Expiration Date Model / Serial / Lot [employer] [id number] 52mm Limit Hole Hip E Hemisphere Shell Acetabular Pps - S0 - [id number] Implanted:Qty: 1 on 05/19/2018 by Missael Bentley MD at [facility] Left: Hip [employer] [id number] 04/22/2028 [id number] / 0 / [id number] [employer] [id number] G7 36mm High Wall Hip E Liner Acetabular Arcomxl - S0 - [id number] Implanted:Qty: 1 on 05/19/2018 by Missael Bentley MD at [facility] Left: Hip [employer] [id number] 01/21/2023 [id number] / 0 / [id number] [employer] [id number] Taperloc 137mm Type 1 Press Fit Full Profile Hip 133d 9 Standard - S0 - [id number] Implanted:Qty: 1 on 05/19/2018 by Missael Bentley MD at [facility] Left: Hip [employer] 12/09/2027 [id number] / 0 / [id number] [employer] [id number] 36mm Modular Hip Standard Head Femoral Biolox Delta - S0 - [id number] Implanted:Qty: 1 on 05/19/2018 by Missael Bentley MD at [facility] Left: Hip [employer] [id number] 03/14/2027 / 0 / [id number] [employer] [id number] G7 54mm Limit Hole Color Coded Hip F Offset Hemisphere Shell - S0 - [id number] Implanted:Qty: 1 on 08/25/2018 by Missael Bentley MD at [facility] Right: Hip [employer] [id number] 07/26/2028 [id number] / 0 / [id number] Liner Acetabular G7 Arcomxl F Id36 Mm Hip High Wall - S0 - [id number] Implanted:Qty: 1 on 08/25/2018 by Missael Bentley MD at [facility] Right: Hip [employer] [id number] 06/26/2022 [id number] / 0 / [id number] [employer] [id number] Taperloc 150mm Type 1 Press Fit Full Profile Hip 133d 15 High - S0 - [id number] Implanted:Qty: 1 on 08/25/2018 by Missael Bentley MD at [facility] Right: Hip [employer] 12/23/2027 [id number] / 0 / [id number] [employer] [id number] 36mm Modular Hip Standard Head Femoral Biolox Delta - S1 - [id number] Implanted:Qty: 1 on 08/25/2018 by Missael Bentley MD at [facility] Right: Hip [employer] [id number] 03/25/2028 / 1 / [id number] Insurance MEDICARE [facility]AD [facility] MEDICARE RAILROAD [facility] MEDICARE RAILROAD [facility] CHOICE PLUS [place] [id number] MEDICARE RAILROAD [facility] Advance Directives For more information, please contact: [phone] * Full Code (Latest Code Status on File) Date Activated Date Inactivated Comments 08/25/2018 9:51 AM 08/26/2018 1:41 PM * Full Code Date Activated Date Inactivated Comments 05/19/2018 12:46 PM 05/20/2018 12:42 PM Care Teams Gas Station Clerk Relationship Specialty Start Date End Date Radha nAsari MD PCP - General Family Practice 12/01/17
--- OUTSIDE RECORDS SUMMARY | 2024-11-24 03:15 | XMS_ITS | Data Portability ---
Author Organization [facility] [place] Address [address] [place] [address] Care Team Providers Care Flight Communications Specialist Name Role Phone MAUREEN ZULUAGA Primary Care Provider [phone] Assessment Encounter Date Assessment Date Assessment LastModified by Organization Details LastModified Time 01/21/2024 01/21/2024 Annual gynecological exam performed. Patient will come back in a year unless there are new symptoms. slodonald Not available 01/21/2024 09:46:05 Plan of Treatment Reminders Order Date Submit Date Provider Last Modified By Organization Details Last Modified Time Details Appointments None recorded . Lab None recorded . Referral gastroen terologi st referral - Constipa tionPlea se contact this patient to schedule an appointm ent.Ba ched are the patients demograp hics and most recent office visit notes.If you have any question s, please contact me at [phone].Th ank jared,Andrés bhakta, Referral 's 2022 023 [facility], [address], [id number], [address], 3 16:15:[address] referral 2022 023 [facility], [address], [id number], [address], 3 12:03:43 colon & rectal surgeon referral 2022 023 [facility], [address] [place], [address], 3 13:28:09 Procedures None recorded . Surgeries None recorded . Imaging None recorded . Medication Orders nystatin -triamci nolone 100,000 unit/gra m-0.1 % topical ointment [address] [id number], [address], [place], [id number], 4 09:46:18 nystatin -triamci nolone 100,000 unit/gra m-0.1 % topical ointment [address] [facility][id number], [address], [place], [id number], 4 09:46:18 Patient TargetsNo targets recorded. Patient InstructionsNo instructions recorded. Reason for Referral Turkish [employer]ber Referral for Constipation Constipation ConstipationPlease contact this patient to schedule an appointment.Attached are the patients demographics and most recent office visit notes.If you have any questions, please contact me at [phone].Thank you,Mary Orr's Referring Physician: Jaymie Bradley [employer]SPORTATION J[employer], Encounter Date: 01/16/2023 Colon & Rectal Surgeon Refer ral for Hemorrhoids Referring Physician: RUDOLPH Raymundo/GYN, Encounter Date: 06/25/2023 [employer] Referral for Constipation Referring Physician: Jaymie Bradley [employer]SPORTATION J[employer] TIT[employer], Encounter Date: 06/25/2023 Procedures Surgical History Date Name Laterality Status Provider Name and Address Organization Details Recorded Time 04/26/20 18 total replacement of hip completed Penny Cordova [facility] 09/11/2022 12:05:14 Imaging Results None recorded. Procedure Notes None recorded. Medical Equipment None Reported. Allergies No known drug allergies Medications Name Sig Start Date Stop Date Status Note LastModified by Organization Details LastModified Time latanoprost 0.005 % eye drops INSTILL 1 DROP IN EACH EYE EVERY DAY IN THE EVENEING 09/11 completed Not Available Not Available Not Available nystatin 100,000 unit/gram topical ointment APPLY TOPICALLY TO THE AFFECTED AREA TWICE DAILY FOR 7 DAYS 01/16 completed Not Available Not Available Not Available tramadol 50 mg tablet TAKE 1 TABLET BY MOUTH EVERY 8 HOURS NEEDED FOR PAIN 09/11 completed Not Available Not Available Not Available nystatin-tr iamcinolone 100,000 unit/gram-0 .1 % topical ointment APPLY TOPICALLY TO THE AFFECTED AREA TWICE DAILY FOR 7 DAYS 01/20 completed Not Available Not Available Not Available hydrocortis one 2.5 % topical cream with perineal applicator APPLY RECTALLY TO THE AFFECTED AREA DAILY NEEDED FOR HEMORRHOI DS 09/11 completed Not Available Not Available Not Available bisacodyl 10 mg rectal suppository UNWRAP AND INSERT 1 SUPPOSITO RY RECTALLY DAILY NEEDED FOR CONSTIPAT ION 09/11 completed Not Available Not Available Not Available cephalexin 500 mg capsule 01/20 completed Not Available Not Available Not Available simvastatin 20 mg tablet TAKE 1 TABLET BY MOUTH EVERY DAY AT BEDTIME active Not Available Not Available No t Available triamcinolo ne acetonide 0.1 % topical ointment APPLY TO THE AFFECTED AREA TWICE DAILY X 7 DAYS 01/16 completed Not Available Not Available Not Available buspirone 10 mg tablet TAKE 1 TABLET BY MOUTH TWICE DAILY NEEDED FOR ANXIETY 01/20 completed Not Available Not Available Not Available mupirocin 2 % topical ointment APPLY TOPICALLY TO THE AFFECTED AREA THREE TIMES DAILY FOR 10 DAYS 01/20 completed Not Available Not Available Not Available polyethylen e glycol 3350 17 gram/dose oral powder DISSOLVE 17 GRAMS IN LIQUID AND TAKE BY MOUTH DAILY 09/11 completed Not Available Not Available Not Available methylpredn isolone 4 mg tablets in a dose pack FOLLOW PACKAGE DIRECTION S 09/11 completed Not Available Not Available Not Available losartan 50 mg-hydrochl orothiazide 12.5 mg tablet TAKE 1 TABLET BY MOUTH DAILY 01/16 completed Not Available Not Available Not Available losartan 100 mg-hydrochl orothiazide 12.5 mg tablet TAKE 1 TABLET BY MOUTH DAILY active Not Available Not Available No t Available sodium,pota ssium,mag sulfates 17.5 gram-3.13 gram-1.6 gram oral soln MIX AND DRINK DIRECTED 01/16 completed Not Available Not Available Not Available Vitals Date Recorded Body height Body mass index (BMI) Body weight Systolic blood pressure Diastolic blood pressure Provider Name and Address Organization Details Last Updated DateTime 09/11/2022 157.48 cm 25.9 kg/m2 87956.4 g 175 mm[Hg] 90 mm[Hg] [facility] 2 11:59:39 Date Recorded Body height Systolic blood pressure Diastolic blood pressure Provider Name and Address Organization Details Last Updated DateTime 11/11/2022 157.48 cm 128 mm[Hg] 73 mm[Hg] [facility] 11/11/2022 12:51:40 Date Recorded Body height Systolic blood pressure Diastolic blood pressure Provider Name and Address Organization Details Last Updated DateTime 01/16/2023 157.48 cm 128 mm[Hg] 72 mm[Hg] [facility] 01/16/2023 10:17:31 Date Recorded Body height Body mass index (BMI) Body weight Systolic blood pressure Diastolic blood pressure Provider Name and Address Organization Details Last Updated DateTime 06/25/2023 157.48 cm 25.8 kg/m2 91359.52 g 130 mm[Hg] 79 mm[Hg] [facility] 10:28:44 Date Recorded Body height Body mass index (BMI) Body weight Systolic blood pressure Diastolic blood pressure Provider Name and Address Organization Details Last Updated DateTime 01/21/2024 157.48 cm 25.2 kg/m2 55457.75 g 117 mm[Hg] 62 mm[Hg] Joanie Reese [facility] 4 11:05:57 Social History Question Answer Notes LastModified by Organizat ion Details LastModified Time Tobacco Smoking Status Never [facility]oker [facility] 09/11/2022 12:04:43 What Is Your Level Of Alcohol Consumption? None Information not available 09/11/2022 Are You Blind Or Do You Have Difficulty Seeing? No Information not available 09/11/2022 Are You Deaf Or Do You Have Serious Difficulty Hearing? No Information not available 09/11/2022 What Type Of Diet Are You Following? REGULAR Information not available 09/11/2022 Sex: Unknown Functional Status Question Answer Note LastModified by Organizat ion Details LastModified Time Do you have difficulty walking or climbing stairs? No Information not available 09/11/2022 Are you able to walk? YESWOREST Information not available 09/11/2022 Are you able to care for yourself? Yes Information not available 09/11/2022 Do you have difficulty dressing or bathing? No Information not available 09/11/2022 What is your exercise level? Occasional Information not available 09/11/2022 Mental Status None recorded. Family History Relationship Description Onset Age of this Age Resolved Age Notes LastModified by Organization Details LastModified Time Mother Anemia vschroedter Not availabl e 09/11/2022 12:01:38 Mother Heart disease vschroedter Not available 08/27 12:01:50 Mother Hyperlipidem ia vschroedter Not available 08/27 12:02:16 Brother Heart disease vschroedter Not available 08/27 12:01:56 Brother Hyperlipidem ia vschroedter Not available 08/27 12:02:21 Brother Essential hypertension vschroedter Not available 1 11/11/2021 12:02:37 Brother Diabetes mellitus vschroedter Not available 08/27 12:02:48 Medical History Condition Response Allergies (Food, seasonal, environmental ) N Other N Breast Cancer N Drug/Latex Allergies/Reactions N Blood Transfusion N Lung Disease N Dermatologic Disorders N Defects or Inherited Disease N Breast Problem N Gestational Diabetes N Hematologic disorders N Anesthesia Complications N History of STI N Deep Vein Thrombosis N Polycystic ovary syndrome N Anxiety Disorder N Autoimmune disease N Arthritis N Polyps N Infertility N History of abnormal pap N Acid Reflux (GERD) N Cancer N Varicosities N Stroke N Neurologic/Epilepsy N Endometriosis N High Cholesterol Y Fibromyalgia N Headaches N Kidney Disease N Heart Problems N Kidney or Bladder Problems N Thyroid Problems N GI Problems N Eating Disorder N Anemia N Art (IVF or FET) N Psychiatric Illness N Ovarian Cancer N Diabetes N Pulmonary (TB, Asthma) N Hepatitis/Liver Disease N No Past Medical History N Eczema N Urinary Tract Infection N Abuse/Domestic Violence N Asthma N Trauma/Violence N Depression/ depression N Heart Disease N Pre-Eclampsia N Hypertension Y Osteoporosis N Thrombophilias N Gynecological History Statement/Question Response Date of Last Mammogram Date of Last Colonoscopy Sexually Active? N Age of first menstrual cycle 12 HPV Vaccine N Date of Last Pap Smear Sexual Problems? N Age at First Child 16 Obstetrics History GPAL:G 2 P 0 0 0 2 Type Value Living 2 Total 2 Past Encounters Encounter ID Performer Location Encounter Start Date Encounter Closed Date Diagnosis/Indication Diagnosis SNOMED-CT Code Diagnosis ICD10 Code Diagnosis Note [id number] EDD Raymundo [place] [address] [address] 09/11/2022 11:33:00 09/11/2022 16:36:17 Vulval irritation 711036736 N90.89 Suspect contact dermatitis /irritatio n from recent daily panty liner usageVulva r care guidelines discussed in-depth-A void daily panty liner usage-cott on underwear only, sleep with no underwear- Free and clear laundry products-W ater/finge rs to cleanse the vulva, free and clear soaps Rx sent, small amount to vulva twice a day for 5-7 daysCrisco twice daily to vulvaRTC for f/u in 2 months - if no improvemen t consider vaginal estrogen Time spent in visit is a total of 30 mins with at least 50% of visit consisting of counseling and review of plan of care. [id number] EDD Raymundo [place] [address] [address] 11/11/2022 12:44:58 11/11/2022 14:33:48 Vulval irritation 385796361 N90.89 Suspect contact dermatitis /irritatio n from continued daily panty liner usage / laundry products / wipesSympt oms have mostly improvedDi scussed need for a strict schedule of crisco twice daily to vulvaVulva r care guidelines discussed in-depth -Avoid daily panty liner usage as much as possible. If panty liner needed, organic cotton only liners-cot ton underwear only, sleep with no underwear- Free and clear laundry products-W ater/finge rs to cleanse the vulva, free and clear soaps Crisco twice daily to vulvaRTC for f/u in 2 months - if no improvemen t consider vaginal estrogen and/or vulvar biospy Time spent in visit is a total of 30 mins with at least 50% of visit consisting of counseling and review of plan of care. [id number] EDD Raymundo [place] [address] [address] 01/16/2023 10:07:51 01/16/2023 12:06:14 Vulval irritation 431432827 N90.89 Symptoms have resolved!f eeling so much betterFoll owing vulvar care guidelines Using crisco twice daily Constipation 90867006 K5 9.00 constipati on / hemmorhoid s, has been following with PCP on this but has yet to see GI. Desires GI referral. Has started bowel regimen and this helps. Using hemmorhoid cream from PCP. Time spent in visit is a total of 15 mins with at least 50% of visit consisting of counseling and review of plan of care. [id number] EDD Raymundo [place] [address] [address] 06/25/2023 10:16:23 06/25/2023 11:21:54 Constipation 20671659 K59.00 recommend GI/colorec abigail surgery consult for constipati on/chronic hemorrhoid s - referral sentrecomm ended increasing fiber intakevulv ar irritation likely related to constant panty liner usagerx sent, r/b/a discussedv ulvar care guidelines discussedt ry to avoid constant liner use, if wearing liner can use Vaseline as a barrierveg etable based moisturize rs to vulva twice dailyavoid vaginal washes/soa ps/wipes Recommende d vaginal estrogen therapy - she denies any contraindi cations. Discussed she would likely benefit from this therapy. She declines at this time. Time spent in visit is a total of 25 mins with at least 50% of visit consisting of counseling and review of plan of care. 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 Do monthly self breast exams. It is advised to get annual flu shot in the fall and she could obtain at [facility] or [facility] take care clinic. If you haven't received the Tdap vaccine in the last 10 years you should obtain one as well. Have mammogram yearly, bone density every 2-3 years and colonoscop y depending on findings and history. Engage in regular exercise, including appropriat e weight bearing exercise. Avoid tobacco and illicit drugs. This lifestyle behavior pattern will lead to less health conditions and longer life span. If BMI greater than 25 dietary consult advised. Questions have been answered. Patient appears to understand instructio ns, but if you have any further questions call or respond to this email Health Concerns Section Related Observation LastModified by Organization Detai ls LastModified Time None Recorded Concern Status LastModified by Organization Details LastModified Time None Recorded Advance Directives Directive None Recorded Payers Encounter Date Sequence Insurance Name Policy Number Policy Chavez Covered Member ID Chavez Member ID Guarantor Name 09/11/2022 1 MEDICARE B: [employer] Desire S Roldan [id number] Desire Roldan 09/11/2022 2 [facility] Mrs Isiah Tsai Roldan [id number] Desire Roldan 11/11/2022 1 MEDICARE B: [employer]IC[facility] Desire S Roldan [id number] Desire Roldan 11/11/2022 2 [facility] Mrs Isiah Tsai Roldan [id number] Desire Roldan 01/16/2023 1 MEDICARE B: [facility] Desire S Roldan [id number] Desire Roldan 01/16/2023 2 [facility] Mrs Isiah Tsai Roldan [id number] Desire Roldan 06/25/2023 1 MEDICARE B: [facility] MED[facility] Desire S Roldan [id number] Desire Roldan 06/25/2023 2 [facility] Mrs Isiah Tsai Roldan [id number] Desire Roldan 01/21/2024 1 MEDICARE B: [facility] MEDICARE Desire S Roldan [id number] Desire Roldan 01/21/2024 2 [facility] Mrs Isiah Tsai Roldan [id number] Desire Roldan Notes Date Note Type Note Provider Name and Address Organization Details Recorded Time 2 text/html 76yo Presents for evaluation of vaginal burning. Burning started about 1 month ago when she started wearing panty liners daily for external hemorrhoids. Following with PCP on this and started a bowel regimen/cream.She is not SADenies any itching, discharge, odors, or postmenopausal bleeding EDD Raymundo [address], [place], [address], [facility] 09/11/2022 13:50:08 3 text/html 76yo Presents for f/uVulvar irritation / burning at LOVUsed nystatin/triamcinolone ointment x 5 days and symptoms resolved. Still feels some irritation/burning at vaginal opening that comes and goes. She has been using crisco about once a day.Wearing daily panty liners still - wearing them due to using hemorrhoid cream from her PCP. She is seeing GI next week about her hemmorhoids.Using tide laundry products EDD Raymundo [address], [place], [address], [facility] 11/11/2022 14:01:33 3 text/html 77yoPresents for f/u on vulvar irritationShe has started following vulvar care guidelines, stopped using wipes / stopped daily panty liner use / free and clear laundry productsHer symptoms have resolved. No longer having any irritationUsing crisco twice dailyStill having constipation/external hemorrhoids EDD Raymundo [address], [place], [address], [facility] 01/16/2023 11:20:03 3 text/html 77yopresents for evaluation of vulvar irritation/itchingsymp toms started 4-5 days ago, started after she started using panty liners daily again. Using a hemorrhoid cream for itching due to persistant external hemorrhoids. She has not been able to see GI or colorectal surgery about this yet. She is often constipatednot currently SAneg pelvic painneg urinary symptomsneg discharge, odorsdenies hx of DVT or BC hx EDD Raymundo [address], [place], [address], [facility] 06/25/2023 11:21:39 4 text/html Annual Grain Handler Post-MenopausalReporte d bypatient.Menopausal Symptoms:no menopausal symptoms; normal vaginal lubrication Vaginal Bleeding:history of menopause having occurred; no history of post menopausal bleeding Urinary Symptoms:no hematuria; no incontinence; no nocturia; no urinary frequency Vulva:no genital lesion; no vulvar atrophy Vagina:normal vaginal discharge; no vaginal atrophy Breast:no breast lump; no nipple discharge; no breast pain Sexual Complaints:no sexual complaints Psychological Symptoms:no depression; no anxiety Preventive Measures:encourage regular mammograms starting age 40; encourage self breast examination; encourage regular exercise; encourage no tobacco use; mammogram performed within the past year; history of recent colonoscopyNotes:WWEpo stmenopausalLMP 50 - no bleeding sinceno h/o abnormal papslast pap about 10 yrs ago - normalmammogram done 6 months agocolonoscopy UTD, exa due this fall - ordered through PCP EDD Raymundo [address], [place], [address], [facility] 01/21/2024 11:27:02 OBGyn Episode Ob Episode Information Episode Created Date Number of Fetuses Patient Bloodtype Patient rh Status Prepregnancy Weight lbs Domestic Partner Domestic Partner Phone Father Name Adjudication Specialist Status 09/11/20 22 1 CLOSED Fetus Data First Name Last Name Admitted to NICU Weight (g) Sex Living Outcome Pediatric Complications Fetus ID Race Codes Race Delivery Type 3259.96 [id number] F [id number] Rosalio Calculation Initial Rosalio Date Initial Exam Date Initial Exam Provider Initial Ultrasound Date Last Menstrual Period Date Ultra Sound Weeks Gestation 0 Eighteen To Twenty Week Rosalio Update Ultra Sound Date Fundal Height At Umbil Quickening Date Ultra Sound Latest Weeks Gestation Final Rosalio Confirmed By Final Rosalio Confirmed Date Final Rosalio Date Ultra Sound Latest Days Gestation 0 0 Menstrual History Last Menstrual Date Menses Monthly On Bcp Conception Prior Menses Frequency Hcg Plus Date Menarche Onset Age Delivery Information Delivery Date Delivery Type Labor Anesthesia Weeks Gestation Incision Type Labor Labor Length Hrs Delivered By Post Complications Tubal Sterilization Discharge Date Comments 7 Discharge Information Feeding Method Contraceptive Method Maternal HG B and HCT Levels Ob Episode Information Episode Created Date Number of Fetuses Patient Bloodtype Patient rh Status Prepregnancy Weight lbs Domestic Partner Domestic Partner Phone Father Name Adjudication Specialist Status 09/11/20 22 1 CLOSED Fetus Data First Name Last Name Admitted to NICU Weight (g) Sex Living Outcome Pediatric Complications Fetus ID Race Codes Race Delivery Type 3033.16 [id number] F [id number] Rosalio Calculation Initial Rosalio Date Initial Exam Date Initial Exam Provider Initial Ultrasound Date Last Menstrual Period Date Ultra Sound Weeks Gestation 0 Eighteen To Twenty Week Rosalio Update Ultra Sound Date Fundal Height At Umbil Quickening Date Ultra Sound Latest Weeks Gestation Final Rosalio Confirmed By Final Rosalio Confirmed Date Final Rosalio Date Ultra Sound Latest Days Gestation 0 0 Menstrual History Last Menstrual Date Menses Monthly On Bcp Conception Prior Menses Frequency Hcg Plus Date Menarche Onset Age Delivery Information Delivery Date Delivery Type Labor Anesthesia Weeks Gestation Incision Type Labor Labor Length Hrs Delivered By Post Complications Tubal Sterilization Discharge Date Comments 2 Discharge Information Feeding Method Contraceptive Method Maternal HG B and HCT Levels
--- NOTE | 2024-11-24 11:34 | ECG_ITS ---
Test Date: 2024-11-24 11:47:25 Measurements Intervals [place] Rate: 88 P: 51 TN: 174 QRS: -6 QRSD: 70 T: 14 QT: 357 QTc: 432 Interpretive Statements SINUS RHYTHM WITH SINUS ARRHYTHMIA POSSIBLE LEFT ATRIAL ENLARGEMENT [-0.1mV P WAVE IN V1/V2] LOW QRS VOLTAGE IN PRECORDIAL LEADS [QRS DEFLECTION < 1.0 mV IN CHEST LEADS] ANTEROSEPTAL MYOCARDIAL INFARCTION [40+ ms Q WAVE IN V1-V4], OF INDETERMINATE AGE BASELINE ARTIFACT LIMITS INTERPRETATION No previous ECG available for comparison Electronically Signed On 11-24-2024 16:09:31 SOLAR ENERGY SPECIALIST by Law Costello M.D.
[2024-11-24 12:38] LABS: Anion Gap 6 mmol/L (4-12); Blood Urea Nitrogen 20 mg/dL (7-17); Calcium 8.9 mg/dL (8.4-10.2); Carbon Dioxide 28 mmol/L (22-30); Chloride 102 mmol/L (98-107); Estimated Glomerular Filt Rate > 60; Glucose 113 mg/dL (65-110); Potassium 3.9 mmol/L (3.4-5.0); Sodium 136 mmol/L (137-145)
--- OUTSIDE RECORDS SUMMARY | 2024-11-24 12:44 | XMS_ITS | Clinical Summary ---
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 Nothing to suggest myocardial ischemia. She was reassured Mixed hyperlipidemia 12/31/2017 Assessment & Plan (12/31/2017 7:49 PM SEED MILL SUPERINTENDENT): LDL is mildly above target. Essential hypertension 12/31/2017 Assessment & Plan (12/31/2017 7:49 PM SEED MILL SUPERINTENDENT): Blood pressure is adequately controlled on current [...] on file Legal Sex Female 10:54 AM SEED MILL SUPERINTENDENT Gender Identity Not on file Sexual Orientation [...] 08/26/2022, 2019 Medical Devices Implanted Type Area Project Controls Scheduler Device Identifier Shelf Expiration Date Model / Serial / Lot [employer] [id number] [id number] 52mm Limit Hole Hip E Hemisphere Shell Acetabular Pps - S0 - [id number] Implanted:Qty: 1 on 05/19/2018 by Missael Bentley MD at [facility] Left: Hip [employer] [id number] 04/22/2028 [id number] / 0 / [id number] [employer] [id number] G7 36mm High Wall Hip E Liner Acetabular Arcomxl - S0 - [id number] Implanted:Qty: 1 on 05/19/2018 by Missael Benltey MD at [facility] Left: Hip [employer] [id number] 01/21/2023 [id number] / 0 / [id number] [employer] [id number] Taperloc 137mm Type 1 Press Fit Full Profile Hip 133d 9 Standard - S0 - [id number] Implanted:Qty: 1 on 05/19/2018 by Missael Bentley MD at [facility] Left: Hip [employer] 12/09/2027 [id number] / 0 / [id number] [employer] [id number] 36mm Modular Hip Standard Head Femoral Biolox Delta - S0 - [id number] Implanted:Qty: 1 on 05/19/2018 by Missael Bentley MD at [facility] Left: Hip [employer] [id number] 03/14/2027 / 0 / [id number] [employer] [id number] G7 54mm Limit Hole Color Coded Hip F Offset Hemisphere Shell - S0 - [id number] Implanted:Qty: 1 on 08/25/2018 by Missael Bentley MD at [facility] Right: Hip [employer] [id number] 07/26/2028 [id number] / 0 / [id number] Liner Acetabular G7 Arcomxl F Id36 Mm Hip High Wall - S0 - [id number] Implanted:Qty: 1 on 08/25/2018 by Missael Bentley MD at [facility] Right: Hip [employer] [id number] 06/26/2022 [id number] / 0 / [id number] [employer] [id number] Taperloc 150mm Type 1 Press Fit Full Profile Hip 133d 15 High - S0 - [id number] Implanted:Qty: 1 on 08/25/2018 by Missael Bentley MD at [facility] Right: Hip [employer] 12/23/2027 [id number] / 0 / [id number] [employer] [id number] 36mm Modular Hip Standard Head Femoral Biolox Delta - S1 - [id number] Implanted:Qty: 1 on 08/25/2018 by Missael Bentley MD at [facility] Right: Hip [employer] [id number] 03/25/2028 / 1 / [id number] Insurance MEDICARE RAILROAD [facility]PPO Address: [facility] [address] [place] [address] MEDICARE RAILROAD [facility] MEDICARE RAILROAD [facility] CHOICE [facility]PPO Address: [address] [address] [place] [id number] MEDICARE RAILROAD [facility]/PPO Address: [address] [place] [address] Advance Directives For more information, please contact: [phone] * Full Code (Latest Code Status on File) Date Activated Date Inactivated Comments 08/25/2018 9:51 AM 08/26/2018 1:41 PM * Full Code Date Activated Date Inactivated Comments 05/19/2018 12:46 PM 05/20/2018 12:42 PM Care Teams Economist Research Assistant Relationship Specialty Start Date End Date Radha Ansari MD PCP - General Family Practice 12/01/17
--- OUTSIDE RECORDS SUMMARY | 2024-11-24 12:44 | XMS_ITS | Referral Summary ---
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 Nothing to suggest myocardial ischemia. She was reassured Mixed hyperlipidemia 12/31/2017 Assessment & Plan (12/31/2017 7:49 PM LOG TRUCK DRIVER): LDL is mildly above target. Essential hypertension 12/31/2017 Assessment & Plan (12/31/2017 7:49 PM LOG TRUCK DRIVER): Blood pressure is adequately controlled on current [...] on file Legal Sex Female 10:54 AM LOG TRUCK DRIVER Gender Identity Not on file Sexual Orientation [...] on file Medical Devices Implanted Type Area Manager Utilities Device Identifier Shelf Expiration Date Model / Serial / Lot [employer] [id number] [id number] 52mm Limit Hole Hip E Hemisphere Shell Acetabular Pps - S0 - [id number] Implanted:Qty: 1 on 05/19/2018 by Missael Bentley MD at [facility] Left: Hip [employer] [id number] 04/22/2028 [id number] / 0 / [id number] [employer] [id number] G7 36mm High Wall Hip E Liner Acetabular Arcomxl - S0 - [id number] Implanted:Qty: 1 on 05/19/2018 by Missael Bentley MD at [facility] Left: Hip [employer] [id number] 01/21/2023 [id number] / 0 / [id number] [employer] 51-672674 Taperloc 137mm Type 1 Press Fit Full Profile Hip 133d 9 Standard - S0 - [id number] Implanted:Qty: 1 on 05/19/2018 by Missael Bentley MD at [facility] Left: Hip [employer] 12/09/2027 [id number] / 0 / [id number] [employer] [id number] 36mm Modular Hip Standard Head Femoral Biolox Delta - S0 - [id number] Implanted:Qty: 1 on 05/19/2018 by Missael Bentley MD at [facility] Left: Hip [employer] [id number] 03/14/2027 12-392267 / 0 / [id number] [employer] [id number] G7 54mm Limit Hole Color Coded Hip F Offset Hemisphere Shell - S0 - [id number] Implanted:Qty: 1 on 08/25/2018 by Missael Bentley MD at [facility] Right: Hip [employer] [id number] 07/26/2028 [id number] / 0 / [id number] Liner Acetabular G7 Arcomxl F Id36 Mm Hip High Wall - S0 - [id number] Implanted:Qty: 1 on 08/25/2018 by Missael Bentley MD at [facility] Right: Hip [employer] [id number] 06/26/2022 [id number] / 0 / [id number] [employer] [id number] Taperloc 150mm Type 1 Press Fit Full Profile Hip 133d 15 High - S0 - [id number] Implanted:Qty: 1 on 08/25/2018 by Missael Bentley MD at [facility] Right: Hip [employer] 12/23/2027 [id number] / 0 / [id number] [employer] [id number] 36mm Modular Hip Standard Head Femoral Biolox Delta - S1 - [id number] Implanted:Qty: 1 on 08/25/2018 by Missael Bentley MD at [facility] Right: Hip [employer] [id number] 03/25/2028 [id number] / 1 / [id number] Insurance MEDICARE RAILROAD [employer] [facility] MEDICARE RAILROAD [facility] MEDICARE RAILROAD [facility] CHOICE PLUS MEDICARE [employer] [facility] Advance Directives For more information, please contact: [phone] * Full Code (Latest Code Status on File) Date Activated Date Inactivated Comments 08/25/2018 9:51 AM 08/26/2018 1:41 PM * Full Code Date Activated Date Inactivated Comments 05/19/2018 12:46 PM 05/20/2018 12:42 PM Care Teams Manager Intern Relationship Specialty Start Date End Date Radha Ansari MD PCP - General Family Practice 12/01/17
--- OUTSIDE RECORDS SUMMARY | 2024-11-24 12:45 | XMS_ITS | Encounter Summary ---
Author Organization [facility] Healthcare Address [address] [place] [address] Care Team Providers Care Cell Installer Name Role Phone Radha Ansari MD Primary Care Provider Encounter Details Date Type Department Care Team (Late st Contact Info) Description 05/20/2018 Documentation [facility] Case Management [address] [address] Susan Jhaveri RN Social History Tobacco Use Types Packs/Day Years Used Date Smoking Tobacco: Never Smokeless Tobacco: Never Alcohol Use Standard Drinks/Week Comments Yes 1 (1 standard drink = 0.6 oz pur e alcohol) Comments Unknown Sex and Gender Information Value Date Recorded Sex Assigned at Not on file Legal Sex Female 10:54 AM SENIOR PROJECT MANAGER ENGINEERING Gender Identity Not on file Sexual Orientation Not on file documented as of this encounter Plan of Treatment Not on file documented as of this encounter Visit Diagnoses Not on filedocumented in this encounter Care Teams Cell Installer Relationship Specialty Start Date End Date Radha Ansari MD PCP - General Family Practice 12/01/17 documented as of this encounter
== END 2024-11-24 11:19 | disposition home or self-care (01) ==
LOC: ANHSURGERY 11:25
PROVIDERS: Anesthesiology; PCP Family Medicine; Visit Provider Surgery
DX: Z79.899 Other long term (current) drug therapy (principal); E78.5 Hyperlipidemia, unspecified; I10 Essential (primary) hypertension; Z01.818 Encounter for other preprocedural examination
CPT/HCPCS: 36415; 80048; 93005

== ENCOUNTER 2024-11-29 01:00 | Day surgery (SDC) | payer MEDICARE, OTHER, SELFPAY ==
[2024-11-22 08:19] VITALS: BMI 25.0
--- NOTE | 2024-11-22 08:31 | PC.NURSE ---
Report to the Outpatient Waiting Room, entrance under the green pavilion located off [facility], at time __10:00am on date __11/29/24 . Planned Procedure Time: ___12:00pm .? Time changes happen often and if your time is changed the preop area will call you the afternoon before. - You and your visitor will be asked to self-screen and do not enter if you have any COVID symptoms. Please call surgeon if you need to reschedule. - A mask is optional within the hospital at this time. Patients may have clear liquids (water, carbonated beverages, clear teas, apple juice) until 3 hours prior to surgery with a maximum of 20 ounces. - No food from midnight until time of surgery and no smoking. This includes no chewing gum, candy or mints.(0900am) Take only the following medications with a SIP of water on the morning of surgery: __Tylenol if needed DO NOT STOP ANY OF YOUR OTHER PRESCRIPTION MEDICATIONS PRIOR TO SURGERY EXCEPT THE FOLLOWING Medications to discontinue per physician- Hold all vitamins and supplements for __3____ days per Anesthesia- Date to take last dose is 11/25/24 . Please no make-up, nail mozambican, hairspray, perfume, deodorant, or body powder the day of surgery.? No jewelry (including any body piercings) or valuables the day of surgery, leave them at home.? Please take a shower or bath the night before, or the morning of, surgery with an antibacterial soap.? Wear comfortable, loose fitting clothing.? - Jewelry must be removed prior to entering the operating room.? Rings and piercings that are not removed may be cut off. - The hospital will not accept responsibility for valuables.? - Please leave all valuables, including medications, at home the day of surgery. If you are going home after surgery, a licensed van driver must drive you home.? - NO public transportation without another adult if you receive anesthesia. - We recommend that an adult stay with you for 24 hours following discharge. - We also recommend that you do not drive, make important decision, drink alcoholic beverages, or take any drugs that were not prescribed by your health care provider for at least 24 hours after your discharge time. Follow any additional instructions given to you from your surgeon. Telephone instructions given to __Patient and asked if any additional questions and then verbalized understanding. Patient advised to call surgeon office or pre surgery nurse liaison [phone] if any additional questions.
[2024-11-29] VITALS (8 sets, daily range): BP systolic 123–170; BP diastolic 52–71; PULSE 87–104; RESP 14–20; TEMP 36.9–37.4; O2SAT 97–100
--- OUTSIDE RECORDS SUMMARY | 2024-11-29 01:04 | XMS_ITS | Referral Summary ---
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 Nothing to suggest myocardial ischemia. She was reassured Mixed hyperlipidemia 12/31/2017 Assessment & Plan (12/31/2017 7:49 PM CERTIFIED DENTAL ASSISTANT): LDL is mildly above target. Essential hypertension 12/31/2017 Assessment & Plan (12/31/2017 7:49 PM CERTIFIED DENTAL ASSISTANT): Blood pressure is adequately controlled on current [...] on file Legal Sex Female 10:54 AM CERTIFIED DENTAL ASSISTANT Gender Identity Not on file Sexual Orientation [...] on file Medical Devices Implanted Type Area New Car Get Ready Mechanic Device Identifier Shelf Expiration Date Model / Serial / Lot [employer] [id number] [id number] 52mm Limit Hole Hip E Hemisphere Shell Acetabular Pps - S0 - [id number] Implanted:Qty: 1 on 05/19/2018 by Missael Bentley MD at [facility] Left: Hip [employer] [id number] 04/22/2028 [id number] / 0 / [id number] [employer] [id number] G7 36mm High Wall Hip E Liner Acetabular Arcomxl - S0 - [id number] Implanted:Qty: 1 on 05/19/2018 by Missael Bentley MD at [facility] Left: Hip [employer] [id number] 01/21/2023 [id number] / 0 / [id number] [employer] 51-533930 Taperloc 137mm Type 1 Press Fit Full Profile Hip 133d 9 Standard - S0 - [id number] Implanted:Qty: 1 on 05/19/2018 by Missael Bentley MD at [facility] Left: Hip [employer] 12/09/2027 [id number] / 0 / [id number] [employer] [id number] 36mm Modular Hip Standard Head Femoral Biolox Delta - S0 - [id number] Implanted:Qty: 1 on 05/19/2018 by Missael Bentley MD at [facility] Left: Hip [employer] [id number] 03/14/2027 [id number] / 0 / [id number] [employer] [id number] G7 54mm Limit Hole Color Coded Hip F Offset Hemisphere Shell - S0 - [id number] Implanted:Qty: 1 on 08/25/2018 by Missael Bentley MD at [facility] Right: Hip [employer] [id number] 07/26/2028 [id number] / 0 / [id number] Liner Acetabular G7 Arcomxl F Id36 Mm Hip High Wall - S0 - [id number] Implanted:Qty: 1 on 08/25/2018 by Missael Bentley MD at [facility] Right: Hip [employer] [id number] 06/26/2022 [id number] / 0 / [id number] [employer] 19267561 Taperloc 150mm Type 1 Press Fit Full Profile Hip 133d 15 High - S0 - [id number] Implanted:Qty: 1 on 08/25/2018 by Missael Bentley MD at [facility] Right: Hip [employer] 12/23/2027 [id number] / 0 / [id number] [employer] [id number] 36mm Modular Hip Standard Head Femoral Biolox Delta - S1 - [id number] Implanted:Qty: 1 on 08/25/2018 by Missael Bentley MD at [facility] Right: Hip [employer] [id number] 03/25/2028 12-580672 / 1 / [id number] Insurance MEDICARE RAILROAD [employer] [facility]ICARE [facility]ILROAD [facility] MEDICARE RAILROAD [facility] CHOICE PLUS MEDICARE [employer] [facility] Advance Directives For more information, please contact: [phone] * Full Code (Latest Code Status on File) Date Activated Date Inactivated Comments 08/25/2018 9:51 AM 08/26/2018 1:41 PM * Full Code Date Activated Date Inactivated Comments 05/19/2018 12:46 PM 05/20/2018 12:42 PM Care Teams Wire Coating Machine Operator Relationship Specialty Start Date End Date Radha Ansari MD PCP - General Family Practice 12/01/17
--- OUTSIDE RECORDS SUMMARY | 2024-11-29 01:04 | XMS_ITS | Data Portability ---
Author Organization [facility] [place] Address [address] [place] [address] Care Team Providers Care Weapons Officer Name Role Phone MAUREEN ZULUAGA Primary Care Provider Assessment Encounter Date Assessment Date Assessment LastModified [...] any question s, please contact me at [phone].Th ank jared,Andrés bhakta, Referral 's 2022 023 [facility], [address], [place], [address], 3 16:15:[address] referral 2022 023 [facility], [address], [place], [address], 3 12:03:43 colon & rectal surgeon referral 2022 023 [facility], [address] [place], [address], 3 13:28:09 Procedures None recorded . Surgeries None recorded . Imaging None recorded . Medication Orders nystatin -triamci nolone 100,000 unit/gra m-0.1 % topical ointment [address] [id number], [address], [place], [id number], 4 09:46:18 nystatin -triamci nolone 100,000 unit/gra m-0.1 % topical ointment [address] [facility], [address], [place], [id number], 4 09:46:18 Patient TargetsNo targets recorded. Patient InstructionsNo instructions recorded. Reason for Referral Mud Analysis Operator Referral for Constipation Constipation ConstipationPlease contact this patient to schedule an appointment.Attached are the patients demographics and most recent office visit notes.If you have any questions, please contact me at [phone].Thank you,Mary Orr's Referring Physician: Jaymie Bradley INTERNATIONAL ACCOUNT REPRESENTATIVE, Encounter Date: 01/16/2023 Colon & Rectal Surgeon Refer ral for Hemorrhoids Referring Physician: RUDOLPH Raymundo/GYN, Encounter Date: 06/25/2023 Mud Analysis Operator Referral for Constipation Referring Physician: Jaymie Bradley INTERNATIONAL ACCOUNT REPRESENTATIVE, Encounter Date: 06/25/2023 Procedures Surgical History Date Name Laterality Status Provider Name and Address Organization Details Recorded Time 04/26/20 18 total replacement of hip completed Penny Cordova [facility] 09/11/2022 12:05:14 Imaging Results None recorded. [...] Updated DateTime 09/11/2022 157.48 cm 25.9 kg/m2 50673.4 g 175 mm[Hg] 90 mm[Hg] [facility] 2 11:59:39 Date Recorded Body height Systolic blood pressure Diastolic blood pressure Provider Name and Address Organization Details Last Updated DateTime 11/11/2022 157.48 cm 128 mm[Hg] 73 mm[Hg] [facility] 11/11/2022 12:51:40 Date Recorded Body height Systolic blood pressure Diastolic blood pressure Provider Name and Address Organization Details Last Updated DateTime 01/16/2023 157.48 cm 128 mm[Hg] 72 mm[Hg] [facility] 01/16/2023 10:17:31 Date Recorded Body height Body mass index (BMI) Body weight Systolic blood pressure Diastolic blood pressure Provider Name and Address Organization Details Last Updated DateTime 06/25/2023 157.48 cm 25.8 kg/m2 90858.52 g 130 mm[Hg] 79 mm[Hg] [facility] 10:28:44 Date Recorded Body height Body mass index (BMI) Body weight Systolic blood pressure Diastolic blood pressure Provider Name and Address Organization Details Last Updated DateTime 01/21/2024 157.48 cm 25.2 kg/m2 27075.75 g 117 mm[Hg] 62 mm[Hg] Joanie Reese [facility] 4 11:05:57 Social History Question Answer Notes LastModified by Organizat ion Details LastModified Time Tobacco Smoking Status Never Smoker [facility] 09/11/2022 12:04:43 What Is Your [...] SNOMED-CT Code Diagnosis ICD10 Code Diagnosis Note [id number] EDD Raymundo [place] [address] [address] 09/11/2022 11:33:00 09/11/2022 16:36:17 Vulval irritation 177579979 N90.89 Suspect contact dermatitis /irritatio n from [...] counseling and review of plan of care. [id number] EDD Raymundo [place] [address] [address] 11/11/2022 12:44:58 11/11/2022 14:33:48 Vulval irritation 056564480 N90.89 Suspect contact dermatitis /irritatio n from [...] counseling and review of plan of care. [id number] EDD Raymundo [place] [address] [address] 01/16/2023 10:07:51 01/16/2023 12:06:14 Vulval irritation 258861759 N90.89 Symptoms have resolved!f eeling so much betterFoll owing vulvar care guidelines Using crisco twice daily Constipation 36144387 K5 9.00 constipati on / hemmorhoid s, has been following with PCP on this but has yet to see GI. Desires GI referral. Has started bowel regimen and this helps. Using hemmorhoid cream from PCP. Time spent in visit is a total of 15 mins with at least 50% of visit consisting of counseling and review of plan of care. [id number] EDD Raymundo [place] [address] [address] 06/25/2023 10:16:23 06/25/2023 11:21:54 Constipation 52986375 K59.00 recommend GI/colorec abigail surgery consult for [...] and review of plan of care. 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 Do monthly self breast exams. It is advised to get annual flu shot in the fall and she could obtain at [facility] or [facility] take care clinic. If you haven't [...] ID Guarantor Name 09/11/2022 1 MEDICARE B: [employer] [facility] Desire S Roldan [id number] Desire Roldan 09/11/2022 2 [facility] Mrs Isiah Tsai Roldan [id number] Desire Roldan 11/11/2022 1 MEDICARE B: [employer] [facility] MEDIC[facility] Desire S Roldan [id number] Desire Roldan 11/11/2022 2 [facility] Mrs Isiah Tsai Roldan [id number] Desire Roldan 01/16/2023 1 MEDICARE B: [facility] Desire S Roldan [id number] Desire Roldan 01/16/2023 2 [facility] Mrs Isiah Tsai Roldan [id number] Desire Roldan 06/25/2023 1 [facility]IC[facility] B[facility] Desire S Roldan [id number] Desire Roldan 06/25/2023 2 [facility] Mrs Isiah Tsai Roldan [id number] Desire Roldan 01/21/2024 1 [facility]ICARE B: [facility] Desire S Roldan [id number] Desire Roldan 01/21/2024 2 [facility] Mrs Isiah Tsai Roldan [id number] Desire Roldan Notes Date Note Type Note [...] postmenopausal bleeding EDD Raymundo [address], [place], [address], [facility] 09/11/2022 [...] laundry products EDD Raymundo [address], [place], [address], [facility] 11/11/2022 14:01:33 3 text/html 77yoPresents for f/u on vulvar irritationShe has started following vulvar care guidelines, stopped using wipes / stopped daily panty liner use / free and clear laundry productsHer symptoms have resolved. No longer having any irritationUsing crisco twice dailyStill having constipation/external hemorrhoids EDD Raymundo [address], [place], [address], [facility] 01/16/2023 [...] BC hx EDD Raymundo [address], [place], [address], [facility] 06/25/2023 11:21:39 4 text/html Annual Pouch Maker Post-MenopausalReporte d bypatient.Menopausal Symptoms:no menopausal symptoms; normal [...] through PCP EDD Raymundo [address], [place], [address], [facility] 01/21/2024 11:27:02 OBGyn Episode Ob Episode Information Episode Created Date Number of Fetuses Patient Bloodtype Patient rh Status Prepregnancy Weight lbs Domestic Partner Domestic Partner Phone Father Name Science Faculty Member Status 09/11/20 22 1 CLOSED Fetus Data First Name Last Name Admitted to NICU Weight (g) Sex Living Outcome Pediatric Complications Fetus ID Race Codes Race Delivery Type 3259.96 [id number] F [id number] Rosalio Calculation Initial Rosalio Date Initial Exam [...] Domestic Partner Domestic Partner Phone Father Name Science Faculty Member Status 09/11/20 22 1 CLOSED Fetus Data First Name Last Name Admitted to NICU Weight (g) Sex Living Outcome Pediatric Complications Fetus ID Race Codes Race Delivery Type 3033.16 [id number] F [id number] Rosalio Calculation Initial Rosalio Date Initial Exam [...]
--- OUTSIDE RECORDS SUMMARY | 2024-11-29 01:04 | XMS_ITS | Encounter Summary ---
Author Organization [facility] Healthcare Address [address] [place] [address] Care Team Providers Care Crnp Name Role Phone Radha Ansari MD Primary Care Provider Encounter Details Date Type Department Care Team (Late st Contact Info) Description 05/20/2018 Documentation [facility] Case Management [address] [facility] [place] [address] Susan Jhaveri RN Social History Tobacco Use Types Packs/Day Years Used Date Smoking Tobacco: Never Smokeless Tobacco: Never Alcohol Use Standard Drinks/Week Comments Yes 1 (1 standard drink = 0.6 oz pur e alcohol) Comments Unknown Sex and Gender Information Value Date Recorded Sex Assigned at Not on file Legal Sex Female 10:54 AM PACKAGE DELIVERY ROOM SERVICE RUNNER Gender Identity Not on file Sexual Orientation Not on file documented as of this encounter Plan of Treatment Not on file documented as of this encounter Visit Diagnoses Not on filedocumented in this encounter Care Teams Crnp Relationship Specialty Start Date End Date Radha Ansari MD PCP - General Family Practice 12/01/17 documented as of this encounter
--- OUTSIDE RECORDS SUMMARY | 2024-11-29 01:04 | XMS_ITS | Clinical Summary ---
Author Organization [facility] Address [address] [place] [address] Care Team Providers Care Identification Technician Name Role Phone Radha Ansari MD Primary [...] (06/17/2018): Added automatically from request for surgery [id number] Aftercare following left hip joint replacement s urgery 03/04/2018 Joint pain, hip 03/02/2018 Other chest pain 12/31/2017 Assessment & Plan (12/31/2017 7:48 PM UNIVERSAL BRANCH CONSULTANT): Atypical and nonexertional. Nothing to suggest myocardial ischemia. She was reassured Mixed hyperlipidemia 12/31/2017 Assessment & Plan (12/31/2017 7:49 PM UNIVERSAL BRANCH CONSULTANT): LDL is mildly above target. Essential hypertension 12/31/2017 Assessment & Plan (12/31/2017 7:49 PM UNIVERSAL BRANCH CONSULTANT): Blood pressure is adequately controlled on current [...] on file Legal Sex Female 10:54 AM UNIVERSAL BRANCH CONSULTANT Gender Identity Not on file Sexual Orientation [...] 08/26/2022, 2019 Medical Devices Implanted Type Area Real Estate Agency Licensee Device Identifier Shelf Expiration Date Model / Serial / Lot [employer] [id number] 52mm Limit Hole Hip E Hemisphere Shell Acetabular Pps - S0 - [id number] Implanted:Qty: 1 on 05/19/2018 by Missael Bentley MD at [facility] Left: Hip [employer] [id number] 04/22/2028 [id number] / 0 / [id number] [employer] [id number] G7 36mm High Wall Hip E Liner Acetabular Arcomxl - S0 - [id number] Implanted:Qty: 1 on 05/19/2018 by Missael Bentley MD at [facility] Left: Hip [employer] [id number] 01/21/2023 [id number] / 0 / [id number] [employer] [id number] Taperloc 137mm Type 1 Press Fit Full Profile Hip 133d 9 Standard - S0 - [id number] Implanted:Qty: 1 on 05/19/2018 by Missael Bentley MD at [facility] Left: Hip [employer] 12/09/2027 [id number] / 0 / [id number] [employer] [id number] 36mm Modular Hip Standard Head Femoral Biolox Delta - S0 - [id number] Implanted:Qty: 1 on 05/19/2018 by Missael Bentley MD at [facility] Left: Hip [employer] [id number] 03/14/2027 / 0 / [id number] [employer] [id number] G7 54mm Limit Hole Color Coded Hip F Offset Hemisphere Shell - S0 - [id number] Implanted:Qty: 1 on 08/25/2018 by Missael Bentley MD at [facility] Right: Hip [employer] [id number] 07/26/2028 [id number] / 0 / [id number] Liner Acetabular G7 Arcomxl F Id36 Mm Hip High Wall - S0 - [id number] Implanted:Qty: 1 on 08/25/2018 by Missael Bentley MD at [facility] Right: Hip [employer] [id number] 06/26/2022 [id number] / 0 / [id number] [employer] [id number] Taperloc 150mm Type 1 Press Fit Full Profile Hip 133d 15 High - S0 - [id number] Implanted:Qty: 1 on 08/25/2018 by Missael Bentley MD at [facility] Right: Hip [employer] 12/23/2027 [id number] / 0 / [id number] [employer] [id number] 36mm Modular Hip Standard Head Femoral Biolox Delta - S1 - [id number] Implanted:Qty: 1 on 08/25/2018 by Missael Bentley MD at [facility] Right: Hip [employer] [id number] 03/25/2028 / 1 / [id number] Insurance MEDICARE RA[employer]ROAD [facility] Address: [address] [facility] [address] [place] [address] MEDICARE RAILROAD [facility] MED[facility]ARE RAILROAD [facility] CHOICE PLUS [facility] HMO/PPO Address: [address] [address] [place] [id number] MEDICARE RAILROAD [facility] H[facility]/PPO Address: [address] [place] [address] Advance Directives For more information, please contact: [phone] * Full Code (Latest Code Status on File) Date Activated Date Inactivated Comments 08/25/2018 9:51 AM 08/26/2018 1:41 PM * Full Code Date Activated Date Inactivated Comments 05/19/2018 12:46 PM 05/20/2018 12:42 PM Care Teams Identification Technician Relationship Specialty Start Date End Date Radha Ansari MD PCP - General Family Practice 12/01/17
[2024-11-29] MEDS: LACTATED RINGERS 1,000 ML 30 ML IV CONT (10:30)
[2024-11-29] MEDS: ACETAMINOPHEN 500 MG TABLET 1000 MG PO (10:45)
[2024-11-29] MEDS: KETOROLAC 15 MG/ML VIAL (*BKC) IV PUSH (10:45)
--- NOTE | 2024-11-29 11:28 | P.PNAN_ITS ---
Anes - Initial Pre Proc Eval Procedure: Operation Date: 11/29/24 12:00 Proposed Procedures p Excisional Hemorrhoidectomy - George Suresh MD Date/Time: 11/29/24 11:28 Surgeon: George Suresh MD Pre Op Diagnosis: grade 3 internal and external hemorrhoids Patient Data Age: 79 Gender: F Height: 1.6 m Weight: 61.4 kg Last Vital Signs Temp 36.9 C 11/29/24 10:34 Pulse 87 11/29/24 10:34 Resp 16 11/29/24 10:34 BP 157/60 H 11/29/24 10:34 Pulse Ox 98 11/29/24 10:34 O2 Del Method Room Air 11/29/24 10:34 Allergies Allergy/AdvReac Type Severity Reaction Status Date / Time No Known Allergies Allergy Verified 11/22/24 08:16 Home Medications ?Medication ?Instructions ?Recorded ?Confirmed ?Type coenzyme Q10 100 mg capsule (Co 200 mg PO DAILY 09/30/19 11/29/24 History Q-10) ascorbic acid 1,000 1 ea PO DAILY 08/08/20 11/29/24 History vd-yrtbhrilzwod-nkbezyib powder effervescent pack (Emergen-C) calcium 333 mg-vit D3 200 1 tablet PO DAILY 08/08/20 11/29/24 History unit-magnesium 133 mg-zinc 5 mg tablet glucosamine 750 zz-uxjljqzgkrp-txu 1 tablet PO DAILY 08/20/21 11/29/24 History no1 644 mg-C 30 mg-nicole 1 mg tablet (Osteo Bi-Flex Triple Strength) acetaminophen 325 mg tablet 325 mg PO Q6H PRN Pain 08/26/22 11/22/24 History (Tylenol) cholecalciferol (vitamin D3) 50 50 mcg PO DAILY 10/18/22 11/29/24 History mcg (2,000 unit) capsule (Vitamin D3) mineral oil 15 ml PO DAILY 03/10/24 11/29/24 History simvastatin 20 mg tablet 20 mg PO QHS #90 tabs 06/01/24 11/29/24 Rx losartan 100 1 tablet PO DAILY #90 tabs 09/03/24 11/29/24 Rx mg-hydrochlorothiazide 12.5 mg tablet Patient hx anesthesia problems: none Family hx anesthesia problems: none Results Review: All pre-operative results and documents have been reviewed as part of the pre- operative evaluation. [facility] Past Medical History Medical History Impacted cerumen of both ears Bleeding external hemorrhoids Paralysis of left vocal cord Glaucoma Chronic low back pain Positive colorectal cancer screening using Cologuard test (~08/2022) colonoscopy is normal Dyslipidemia Dysphonia Essential (primary) hypertension Osteoarthritis Osteopenia Hx of echocardiogram negative stress echo 2001 Surgical History Surgical History History of ear, nose, and throat (ENT) surgery - on vocal cords for dysphonia History of hip replacement (~2017) right - 07/2018 left 04/2018 Family History Family History Sibling Diabetes mellitus Family history of hearing loss Mother Family history of hearing loss Social History Social History Smoking status: Never smoker Second hand tobacco smoke exposure: No Alcohol intake: never Alcohol use details: 2 per year Substance use: never Substance use type: does not use Do You Feel Safe in your Home?: Yes Lack of Transportation: No Lack of Food: Never True Current Housing: I Have Housing Concerned About Future Housing: No Difficulty Paying Gas/Electric Bills: No Difficulty Paying for Meds: No Currently Unemployed: No Education: High School Diploma/GED Living arrangements: alone Additional living arrangements comments: Pts 08/25/21 Occupation/Education: retired Gender identity (if verbalized by the patient): Female Sexual Orientation (if Verbalized by the Patient): Straight or Heterosexual Spiritual care concerns: No Agree to blood products: Yes Anes - Eval Final PreProcedure Day of Procedure 11/29/24 11:28 Patient weight: normal Heart: regular rate and rhythm Lungs: clear to auscultation Airway: Mallampati scale class III and special considerations poor opening Neurological: alert and oriented Last oral intake: >/= 8 hours ASA classification: III Emergent: no Anesthetic plan: proceed Anesthesia type and monitoring: general and standard monitoring Results Review: All pre-operative results and documents have been reviewed as part of the pre- operative evaluation. Informed Consent: The patient's anesthetic plan and its attendant risks and benefits were discusse d with the patient/family/POA. Questions were solicited and answers provided to the satisfaction of the patient/family/POA.
--- NOTE | 2024-11-29 11:39 | PM.IMHP ---
H&P: HPI History of Present Illness Date/Time: 11/29/24 11:39 Chief Complaint: Bleeding hemorrhoids Narrative: Desire is a 78 y/o female who returns to the office at the request of Dr. Ansari for evaluation of bleeding hemorrhoids. Patient has been experiencing intermittent bleeding with BM's since 2021. Patient reports frequent constipation. States she uses mineral daily (2 doses daily). She had tried OTC topicals with not much relief. Review of Systems Review of Systems: The remainder of the review of systems to include constitutional, HEENT, cardiovascular, respiratory, GI, , integumentary, musculoskeletal, endocrine, immunologic, hematologic, psychiatric, and neurologic are all negative except for which is mentioned above in the HPI. [facility] Past Medical History Medical History Impacted cerumen of both ears Bleeding external hemorrhoids Paralysis of left vocal cord Glaucoma Chronic low back pain Positive colorectal cancer screening using Cologuard test (~08/2022) colonoscopy is normal Dyslipidemia Dysphonia Essential (primary) hypertension Osteoarthritis Osteopenia Hx of echocardiogram negative stress echo 2001 Surgical History Surgical History History of ear, nose, and throat (ENT) surgery 1980s - on vocal cords for dysphonia History of hip replacement (~2017) right - 07/2018 left 04/2018 Family History Family History Sibling Diabetes mellitus Family history of hearing loss Mother Family history of hearing loss Social History Social History Smoking status: Never smoker Second hand tobacco smoke exposure: No Alcohol intake: never Alcohol use details: 2 per year Substance use: never Substance use type: does not use Do You Feel Safe in your Home?: Yes Lack of Transportation: No Lack of Food: Never True Current Housing: I Have Housing Concerned About Future Housing: No Difficulty Paying Gas/Electric Bills: No Difficulty Paying for Meds: No Currently Unemployed: No Education: High School Diploma/GED Living arrangements: alone Additional living arrangements comments: Pts 08/25/21 Occupation/Education: retired Gender identity (if verbalized by the patient): Female Sexual Orientation (if Verbalized by the Patient): Straight or Heterosexual Spiritual care concerns: No Agree to blood products: Yes Meds Home Medications and Allergies Home Medications ?Medication ?Instructions ?Recorded ?Confirmed ?Type coenzyme Q10 100 mg capsule (Co 200 mg PO DAILY 09/30/19 11/29/24 History Q-10) ascorbic acid 1,000 1 ea PO DAILY 08/08/20 11/29/24 History qd-vfpyoxfzzknw-zmfcdahl powder effervescent pack (Emergen-C) calcium 333 mg-vit D3 200 1 tablet PO DAILY 08/08/20 11/29/24 History unit-magnesium 133 mg-zinc 5 mg tablet glucosamine 750 hj-hqdjhfqmxgb-jht 1 tablet PO DAILY 08/20/21 11/29/24 History no1 644 mg-C 30 mg-nicole 1 mg tablet (Osteo Bi-Flex Triple Strength) acetaminophen 325 mg tablet 325 mg PO Q6H PRN Pain 08/26/22 11/22/24 History (Tylenol) cholecalciferol (vitamin D3) 50 50 mcg PO DAILY 10/18/22 11/29/24 History mcg (2,000 unit) capsule (Vitamin D3) mineral oil 15 ml PO DAILY 03/10/24 11/29/24 History simvastatin 20 mg tablet 20 mg PO QHS #90 tabs 06/01/24 11/29/24 Rx losartan 100 1 tablet PO DAILY #90 tabs 09/03/24 11/29/24 Rx mg-hydrochlorothiazide 12.5 mg tablet Allergies Allergy/AdvReac Type Severity Reaction Status Date / Time No Known Allergies Allergy Verified 11/22/24 08:16 Vital Signs Vital Signs - 24 hr 11/29/24 10:34 Temperature 36.9 C Pulse Rate 87 Respiratory Rate 16 Blood Pressure 157/60 H Pulse Oximetry 98 Oxygen Delivery Room Air Exam Const: General: comfortable and no acute distress HENMT: Ears: TM's normal bilaterally Face/Nose/Sinus: Normal nares present Mouth: Yes moist mucous membranes Eyes: General: appearance normal, both eyes and all related structures Sclera: sclerae normal Pupils: Equal, round and reactive pupils present EOM: EOMs intact bilaterally Neck: Neck: supple and no JVD Resp: Effort & Inspection: normal respiratory effort Auscultation: clear to auscultation bilaterally Cardio: Rate: regular rate Rhythm: regular rhythm GI: GI Palp: Yes Soft to palpation, No Firmness to palpation present (GI), No Tenderness to palpation present (GI), No Guarding due to palpation present (GI) and No Hernia present Other: Left (9 o'clock) and right (3 o'clock) grade 3 internal hemorrhoids. Friable. Partial thrombosis of left lateral hemorrhoid. No active bleeding. Skin: General skin exam: normal color and no rashes or lesions noted Neuro: General: gait normal Speech: normal speech Motor exam (neuro): 5/5 motor strength present throughout Sensory Exam: normal sensation Extrem: General: normal to inspection Psych: Mental Status: mental status grossly normal Affect: normal affect Assessment and Plan Assessment and plan (1) Bleeding internal hemorrhoids: Code(s): K64.8 - Other hemorrhoids Status: Acute Assessment and Plan: I have reviewed Dr. Ansari's office note prior to today's visit. Patient has left and right grade three internal hemorrhoids. Patient had tried conservative treatment with minimal improvement. I discussed proceeding with excisional hemorrhoidectomy under general anesthesia as an outpatient. Procedure risks, benefits, indications, and expected outcomes were discussed with the patient in detail. All questions were answered. Patient would like to proceed with scheduling in November. Follow-up 2 weeks postoperatively. (2) Grade III internal hemorrhoids: Code(s): K64.2 - Third degree hemorrhoids Status: Acute Assessment and Plan: As above.
--- NOTE | 2024-11-29 11:46 | WPDHPUPDATE1 ---
History and Physical Update Update Date/Time: 11/29/24 11:46 History and Physical has been reviewed, including an updated exam of the patient. There are NO changes in the patient's condition. Risks, benefits, and alternatives have been discussed and questions answered. Patient agrees to proceed with procedure.
[2024-11-29] MEDS: ceFAZolin 2 GM/D5W 50 ML 2 GM/50 ML BAG IVPB (13:11)
[2024-11-29] MEDS: LIDO 1%/EPINEPHRINE 1:100,000 50 ML VIAL 30 ML INFILTRATE (13:32)
[2024-11-29] MEDS: BUPivacaine HCL 0.5% PF 30 ML VIAL INFILTRATE (13:33)
[2024-11-29] MEDS: LIDOCAINE 2% GEL UROJET 10 ML PKG MUCOUS MEM (14:27)
--- NOTE | 2024-11-29 14:29 | PM.OP ---
Procedure Note - Brief Procedure Note - Brief Date of procedure: 11/29/24 Bleeding grade 3 prolapsing internal hemorrhoids Post-op diagnosis: Same Procedure performed: Excisional hemorrhoidectomy x2 and banding of internal hemorrhoids x1 Surgeon: George Suresh MD Developer Programmer Analyst: CARLOS Roa Anesthesia: GLMA Estimated blood loss (mL): 25 Drains: No Packing: Yes (Lidocaine jelly soaked Gelfoam packing anal canal) Pathology: Yes (Hemorrhoids x2 to pathology) Complications: No immediate complications Condition: Stable Disposition: PACU
--- NOTE | 2024-11-30 10:35 | P.OP_ITS ---
Procedure Note - Detailed Date of Procedure 11/29/24 Pre-op Diagnosis Grade 3 bleeding internal hemorrhoids Post-op Diagnosis Same Procedure Performed Incisional hemorrhoidectomy x2, banding of internal hemorrhoids x1. Surgeon George Suresh MD Vice President Pharmacy Kelly White [employer] MECH[employer]IC HELPER Anesthesia General Indications Patient is a 79-year-old female who has had problems with bleeding internal hemorrhoids which are prolapsing for quite some time. She had no she has been trying to treated with non operative measures with good bowel regimen and cghy-edn-rfwmobr medications. She does not feel the is working well and presents now for surgical excision of the hemorrhoids. Findings The patient had large anterior and posterior prolapsing grade 3 nonthrombosed hemorrhoids located at the anterior midline 12 o'clock and posterior midline position at 6 o'clock with the patient in lithotomy. She also had a smaller internal hemorrhoid at the 3 o'clock position the left lateral side. Description of Procedure After informed consent was obtained patient brought to the operating room she was placed supine position on the operating table and placed under general endotracheal anesthesia. She was then placed in the lithotomy position [facility] and the perianal and perineal region was then prepped and draped usual sterile fashion. Time-out was then performed correctly identifying the patient as well as procedure to be performed. She was given perioperative IV antibiotics. A lubricated anal speculum was then placed into the anal canal and gentle dilation of the anal sphincters was performed. She had large prolapsing nonthrombosed internal hemorrhoids in the anterior and posterior midlines. A smaller nonthrombosed hemorrhoid was noted at the 3 o'clock position on the left lateral side. I 1st started by excising the hemorrhoid at the 12 o'clock position. A 2-0 chromic suture was placed at the apex of the hemorrhoid above the dentate line. I then incised tissue on either side of the hemorrhoid in a prasad configuration extended the incision out onto the perianal skin. Electrocautery was then used to completely excise off the excess perianal skin and hemorrhoidal tissue off of the internal sphincter muscle fibers without damaging the internal sphincter. The tissue was sent to pathology for examination labeled as hemorrhoid twelve o'clock. I then closed the incision by running the 2-0 chromic suture in a running locking fashion up to the anal verge. I then transition to using a 3-0 Vicryl suture placed in running locking fashion to close the perianal skin incision. I then excised the posterior 6 o'clock hemorrhoid a similar fashion. Again a 2-0 chromic suture was placed at the apex of the hemorrhoid and the tissue was incised around the hemorrhoid tissue with a scalpel and extended the incision out onto the perianal skin. Electrocautery was then used to excise off the excess a perianal skin and hemorrhoid tissue without damaging the internal sphincter muscle fibers. This tissue was sent to pathology labeled as hemorrhoid to 6 o'clock. This incision was then closed by running the 2-0 chromic suture in a running locking fashion to the anal verge. Transition to a 3-0 Vicryl suture placed in a running and locking fashion then closed the perianal skin incision. Lastly, I was afraid to excise the hemorrhoid at the 3 o'clock position due to potential for stricturing of the anal opening and so I decided to treat this hemorrhoid with a double rubber-band ligation. The rubber-band ligate her apparatus was then placed into the anal canal and the hemorrhoid tissue was held with a Allis clamp. There were band ligated was then fired to apply 2 rubber bands to the internal hemorrhoid tissue above the dentate line. I then irrigated out the anal canal sterile saline solution. Hemostasis was good. I then placed a perianal block utilizing 1% lidocaine mixed with 0.5% Marcaine in a 50 50 mixture with some epinephrine and injected around the anal opening. Also administered a bilateral pudendal nerve block with the same local anesthetic mixture. There is then cleaned and then lidocaine jelly soaked piece of Gelfoam was then placed into the anal canal for a packing. There is then cleaned and then 4x4 gauze, ABD pad, and disposable underwear was used for final dressing. The patient tolerated the procedure well no complications. All sponges, needles, and instrument counts were correct at the end procedure. EBL was _50__cc. The patient was awakened and taken to recovery in stable and satisfactory condition. Implants None Estimated Blood Loss 50 Drains No Packing Yes ( Gelfoam packing anal canal) Pathology Yes ( hemorrhoids x2 to pathology) Complications No immediate complications Condition Stable Disposition PACU [facility] Billing Surgery - Charge Forward: Surgery Billing
== END 2024-11-29 16:41 | disposition home or self-care (01) ==
PROVIDERS: PCP Family Medicine; Visit Provider Surgery
PROC: (CPT 46260; principal; 2024-11-29 12:00)
DX: K64.2 Third degree hemorrhoids (principal); K64.8 Other hemorrhoids; K64.4 Residual hemorrhoidal skin tags; E78.5 Hyperlipidemia, unspecified; I10 Essential (primary) hypertension; M85.88 Other specified disorders of bone density and structure, other site; J38.01 Paralysis of vocal cords and larynx, unilateral; G89.29 Other chronic pain; M54.50 Low back pain, unspecified; M19.90 Unspecified osteoarthritis, unspecified site; Z79.899 Other long term (current) drug therapy; Z98.890 Other specified postprocedural states
CPT/HCPCS: 46260; 88304; A9270; J0690; J1100; J1596; J1885; J2003; J2004; J2371; J2405; J2704; J3010; J7120

== ENCOUNTER 2025-03-15 09:51 | Outpatient (CLI) | payer MEDICARE, OTHER, SELFPAY ==
[2025-03-15 13:35] LABS: Alanine Aminotransferase 18 U/L (6-35); Albumin Level 4.2 g/dL (3.5-5.1); Alkaline Phosphatase 75 U/L (38-126); Anion Gap 6 mmol/L (4-12); Aspartate Amino Transferase 37 U/L (14-36); Bilirubin,Total 0.6 mg/dL (0.2-1.3); Blood Urea Nitrogen 17 mg/dL (7-17); Calcium 9.3 mg/dL (8.4-10.2); Carbon Dioxide 29 mmol/L (22-30); Chloride 105 mmol/L (98-107); Estimated Glomerular Filt Rate 60; Glucose 85 mg/dL (65-110); Potassium 4.5 mmol/L (3.4-5.0); Sodium 140 mmol/L (137-145)
[2025-03-15 14:28] LABS: Hemoglobin A1C 5.4 % (<5.7)
== END 2025-03-15 09:52 | disposition home or self-care (01) ==
LOC: ANHGOSHLAB 09:52
PROVIDERS: PCP Family Medicine; Visit Provider Family Medicine
DX: E11.9 Type 2 diabetes mellitus without complications (principal); I10 Essential (primary) hypertension
CPT/HCPCS: 36415; 80053; 83036

== ENCOUNTER 2025-09-29 11:12 | Outpatient (CLI) | payer MEDICARE, OTHER, SELFPAY ==
[2025-09-29 14:22] LABS: Hematocrit 41.0 % (37.0-47.0); Hemoglobin 14.0 g/dL (12.0-15.0); Immature Granulocyte Percent A 0.0 % (0-0.5); Lymphocytes Absolute Auto 1.54 K/mm3 (0.9-3.2); Mean Corpuscular HGB Conc 34.1 g/dl (32-36); Mean Corpuscular Hemoglobin 32.3 pg (26-34); Mean Corpuscular Volume 94.7 fl (80-100); Nucleated Red Blood Cells Absolute Auto 0.000 K/mm3 (0.0-0.012); Nucleated Red Blood Cells Perc 0.0 % (0.0-0.2); Platelet Count Result 200 k/mm3 (150-375); Red Blood Count 4.33 M/mm3 (4.2-5.4); White Blood Count 4.5 K/mm3 (4.5-10.0)
[2025-09-29 14:30] LABS: Alanine Aminotransferase 17 U/L (6-35); Albumin Level 4.0 g/dL (3.5-5.1); Alkaline Phosphatase 75 U/L (38-126); Anion Gap 1 mmol/L (4-12); Aspartate Amino Transferase 43 U/L (14-36); Bilirubin,Total 0.5 mg/dL (0.2-1.3); Blood Urea Nitrogen 17 mg/dL (7-17); Calcium 9.5 mg/dL (8.4-10.2); Carbon Dioxide 30 mmol/L (22-30); Chloride 105 mmol/L (98-107); Cholesterol 221 mg/dL (0-200); Estimated Glomerular Filt Rate 60; Glucose 86 mg/dL (65-110); HDL Direct 50 mg/dL; Magnesium 2.3 mg/dL (1.6-2.3); Potassium 3.9 mmol/L (3.4-5.0); Sodium 136 mmol/L (137-145); Total Protein 7.1 g/dL (6.3-8.2); Triglycerides 231 mg/dL (<150)
[2025-09-29 15:24] LABS: Vitamin B12 321.0 pg/mL (239-931)
[2025-09-29 16:22] LABS: Hemoglobin A1C 5.6 % (<5.7)
[2025-09-29 16:23] LABS: Thyroid Stimulating Hormone Reflex 2.590 uIU/mL (0.465-4.68)
== END 2025-09-29 11:13 | disposition home or self-care (01) ==
LOC: ANHGOSHLAB 11:13
PROVIDERS: PCP Family Medicine; Visit Provider Nurse Practitioner Family
DX: E78.5 Hyperlipidemia, unspecified (principal); I10 Essential (primary) hypertension; R73.03 Prediabetes; E55.9 Vitamin D deficiency, unspecified
CPT/HCPCS: 36415; 80053; 80061; 82306; 82607; 83036; 83735; 84443; 85025